=== PATIENT | female | born 1970 | race Caucasian/White ===

== ENCOUNTER 2021-02-07 08:18 | Outpatient (REF) | payer MEDICARE, SELFPAY ==
[2021-02-07 11:23] LABS: MANUAL DIFF FLAG NO
[2021-02-07 11:41] LABS: Basophils Absolute Auto 0.1 X10*3/uL (0.0-0.2); Basophils Percent Auto 0.8 % (0-2); Eosinophils Absolute Auto 0.1 X10*3/uL (0.0-0.4); Eosinophils Percent Auto 1.1 % (0-4); Hematocrit 45.1 % (37-47); Hemoglobin 14.6 g/dl (12.0-16.0); Imm Gran Abs Auto 0.01 X10*3/uL (0.00-0.03); Imm Gran Pct Auto 0.2 % (0.0-0.4); Lymphocytes Absolute Auto 1.2 X10*3/uL (1.2-4.9); Lymphocytes Percent Auto 19.9 % (20-40); Mean Corpuscular HGB Conc 32.4 g/dl (31.0-35.0); Mean Corpuscular Hemoglobin 28.8 pg (27.0-33.0); Mean Platelet Volume 11.6 fL (9.4-12.3); Monocytes Absolute Auto 0.6 X10*3/uL (0.1-1.2); Neutrophils Absolute Auto 4.3 X10*3/uL (2.0-8.3); Platelet Count 310 X10*3/uL (160-400); Red Blood Count 5.07 X10*6/uL (4.20-5.50); Red Cell Distribution Width 12.9 % (11.0-16.0); White Blood Count 6.2 X10*3/uL (4.8-10.8)
[2021-02-07 11:59] LABS: Alanine Aminotransferase 7 U/L (0-31); Albumin Level 4.4 g/dL (3.5-5.0); Alkaline Phosphatase 67 U/L (39-117); Anion Gap 13 (12-20); Aspartate Amino Transferase 15 U/L (5-31); Bilirubin Total 0.5 mg/dL (0.0-1.0); Blood Urea Nitrogen 15 mg/dL (9-16); Calcium 9.9 mg/dL (8.4-10.2); Carbon Dioxide 29 mmol/L (22-29); Chloride 105 mmol/L (96-108); Estimated Glomerular Filt Rate > 60; Glucose Random 94 mg/dL (60-115); Potassium 4.5 mmol/L (3.3-5.1); Sodium 142 mmol/L (135-145); Total Protein 6.6 g/dL (6.5-8.0)
[2021-02-09 09:46] LABS: LDL Cholesterol Direct 130 mg/dL (<100)
== END 2021-02-07 08:19 | disposition home or self-care (01) ==
LOC: HO.HMGCLDS 08:18
PROVIDERS: PCP Internal Medicine; Visit Provider Internal Medicine
DX: F41.1 Generalized anxiety disorder (principal); I10 Essential (primary) hypertension; N32.9 Bladder disorder, unspecified
CPT/HCPCS: 36415; 80053; 83721; 85025

== ENCOUNTER 2022-05-08 11:52 | Outpatient (REF) | payer OTHER, SELFPAY ==
--- NOTE | ~2022-05-08 | XR_ITS ---
EXAMINATION: XR hip LT min 2V, XR hip RT min 2V CLINICAL INFORMATION: Reason for Exam M25.551 - Pain in left hip COMPARISON: None. TECHNIQUE: Two views of the bilateral hips. FINDINGS: No acute fracture or dislocation. Mild degenerative changes of the bilateral hips with a left os acetabuli. Calcified phleboliths in the pelvis. XR/XR hip LT min 2V IMPRESSION: Mild degenerative changes of the bilateral hips.
--- NOTE | ~2022-05-08 | XR_ITS ---
EXAMINATION: XR hip LT min 2V, XR hip RT min 2V CLINICAL INFORMATION: Reason for Exam M25.551 - Pain in left hip COMPARISON: None. TECHNIQUE: Two views of the bilateral hips. FINDINGS: No acute fracture or dislocation. Mild degenerative changes of the bilateral hips with a left os acetabuli. Calcified phleboliths in the pelvis. XR/XR hip RT min 2V IMPRESSION: Mild degenerative changes of the bilateral hips.
[2022-05-08 13:57] LABS: MANUAL DIFF FLAG NO
[2022-05-08 14:08] LABS: Basophils Absolute Auto 0.1 X10*3/uL (0.0-0.2); Eosinophils Percent Auto 0.5 % (0-4); Hemoglobin 14.6 g/dl (12.0-16.0); Imm Gran Abs Auto 0.01 X10*3/uL (0.00-0.03); Imm Gran Pct Auto 0.2 % (0.0-0.4); Lymphocytes Absolute Auto 1.4 X10*3/uL (1.2-4.9); Lymphocytes Percent Auto 23.8 % (20-40); Mean Corpuscular HGB Conc 32.4 g/dl (31.0-35.0); Mean Corpuscular Volume 89.5 fL (80.0-98.0); Monocytes Absolute Auto 0.7 X10*3/uL (0.1-1.2); Monocytes Percent Auto 12.6 % (2-11); Neutrophils Absolute Auto 3.6 x10*3/uL (2.0-8.3); Neutrophils Percent Auto 61.9 % (45-73); Platelet Count 370 X10*3/uL (160-400); Red Blood Count 5.03 X10*6/uL (4.20-5.50); Red Cell Distribution Width 13.3 % (11.0-16.0); White Blood Count 5.8 X10*3/uL (4.8-10.8)
[2022-05-08 14:23] LABS: Alanine Aminotransferase 9 U/L (0-31); Albumin Level 4.6 g/dL (3.5-5.0); Alkaline Phosphatase 68 U/L (39-117); Anion Gap 15 (12-20); Aspartate Amino Transferase 16 U/L (5-31); Bilirubin Total 0.6 mg/dL (0.0-1.0); Blood Urea Nitrogen 18 mg/dL (9-16); Calcium 9.6 mg/dL (8.4-10.2); Carbon Dioxide 28 mmol/L (22-29); Chloride 105 mmol/L (96-108); Estimated Glomerular Filt Rate > 60; Glucose Random 87 mg/dL (60-115); Potassium 4.7 mmol/L (3.3-5.1); Sodium 143 mmol/L (135-145); Total Protein 6.9 g/dL (6.5-8.0)
[2022-05-08 14:45] LABS: TSH reflex Free T4 0.31 uIU/mL (0.32-4.0)
[2022-05-08 15:18] LABS: Free T4 (Free Thyroxine) 1.04 ng/dL (0.71-1.85)
[2022-05-10 16:16] LABS: LDL Cholesterol Direct 118 mg/dL (<100)
== END 2022-05-08 11:53 | disposition home or self-care (01) ==
LOC: HO.HMGCX 11:52
PROVIDERS: PCP Internal Medicine; Visit Provider Internal Medicine
DX: Z00.01 Encounter for general adult medical examination with abnormal findings (principal); M25.552 Pain in left hip; M25.551 Pain in right hip; F33.9 Major depressive disorder, recurrent, unspecified; F41.1 Generalized anxiety disorder; G35 Multiple sclerosis; I10 Essential (primary) hypertension; N32.9 Bladder disorder, unspecified
CPT/HCPCS: 36415; 73502; 80053; 83721; 84439; 84443; 85025

== ENCOUNTER 2022-06-30 18:40 | Inpatient (IN) | payer MEDICARE, MEDICAID, SELFPAY ==
--- NOTE | ~2022-06-30 | XR_ITS ---
EXAMINATION: XR CHEST CLINICAL INFORMATION: Generalized COMPARISON: 02/04/2019 TECHNIQUE: Frontal view of the chest was obtained. FINDINGS: Heart size normal. No evidence of CHF. Again noted is ectasia of the ascending aorta unchanged from 2019. Bilateral nipple shadows are present. No infiltrates, effusions or suspicious lung masses are seen XR/XR chest 1V IMPRESSION: No acute intrathoracic disease.
[2022-06-30 19:22] VITALS: BP 150/96; BP 152/90; PULSE 103; PULSE 123; RESP 23; TEMP 37.5; O2SAT 94; O2SAT 96; BMI 16.1
[2022-06-30 19:29] VITALS: BP 150/96; PULSE 128; RESP 23; TEMP 37.5; O2SAT 95
[2022-06-30 20:13] LABS: MANUAL DIFF FLAG NO
[2022-06-30 20:23] LABS: Basophils Absolute Auto 0.1 X10*3/uL (0.0-0.2); Basophils Percent Auto 0.6 % (0-2); Eosinophils Absolute Auto 0.1 X10*3/uL (0.0-0.4); Eosinophils Percent Auto 0.7 % (0-4); Hematocrit 41.7 % (37.0-47.0); Hemoglobin 13.6 g/dl (12.0-16.0); Imm Gran Abs Auto 0.02 X10*3/uL (0.00-0.03); Imm Gran Pct Auto 0.2 % (0.0-0.4); Lymphocytes Absolute Auto 0.3 X10*3/uL (1.2-4.9); Lymphocytes Percent Auto 3.6 % (20-40); Mean Corpuscular HGB Conc 32.6 g/dl (31.0-35.0); Mean Corpuscular Hemoglobin 28.9 pg (27.0-33.0); Mean Corpuscular Volume 88.5 fL (80.0-98.0); Mean Platelet Volume 10.8 fL (9.4-12.3); Monocytes Absolute Auto 0.7 X10*3/uL (0.1-1.2); Monocytes Percent Auto 7.6 % (2-11); Neutrophils Absolute Auto 7.6 x10*3/uL (2.0-8.3); Neutrophils Percent Auto 87.3 % (45-73); Platelet Count 316 X10*3/uL (160-400); Red Blood Count 4.71 X10*6/uL (4.20-5.50); Red Cell Distribution Width 12.9 % (11.0-16.0); White Blood Count 8.7 X10*3/uL (4.8-10.8)
[2022-06-30 20:32] LABS: Anion Gap 13 (12-20); Blood Urea Nitrogen 18 mg/dL (9-16); Calcium 9.5 mg/dL (8.4-10.2); Carbon Dioxide 27 mmol/L (22-29); Chloride 106 mmol/L (96-108); Estimated Glomerular Filt Rate > 60; Glucose Random 98 mg/dL (60-115); Potassium 4.7 mmol/L (3.3-5.1); Sodium 141 mmol/L (135-145)
--- NOTE | 2022-06-30 20:43 | ED_ITS ---
HPI - General Adult General Chief complaint: General Medical Stated complaint: GENERAL BODY PAIN Time Seen by Provider: 06/30/22 19:41 Source: patient and old records reviewed History of Present Illness HPI narrative: Patient complains of severe all over body pain but mostly in her neck and shoulders. No to recent traumas or precipitating factors of which she is aware. She has a history of chronic MS for which she has been followed by Neurology but her neurologist recently retired. She is in the process of obtaining a new one. She states over the past 1-2 days she has been having the above-mentioned increased pain. She does not know of any precipitating factors. There have been no recent stressors or illnesses. She denies fevers and chills although her temperature is 99.5 degrees here. She has chronic urinary incontinence but no new symptoms. No recent cough or URI symptoms. She lives at home with her son. Related Data Home Medications Medication Instructions Recorded Confirmed cholecalciferol (vitamin D3) 50 50 mcg PO DAILY 05/14/20 05/08/22 mcg (2,000 unit) capsule Previous Rx's Medication Instructions Recorded atenolol 25 mg tablet 25 mg PO DAILY 90 days #90 tabs 05/08/22 meclizine 25 mg tablet 25 mg PO ONCE 90 days #90 tabs 05/08/22 oxybutynin chloride 15 mg 15 mg PO DAILY 90 days #90 tabs 05/08/22 tablet,extended release 24 hr Allergies Allergy/AdvReac Type Severity Reaction Status Date / Time No Known Allergies Allergy Verified 05/20/22 14:18 [No Known Allergies*] Review of Systems Constitutional: Comments: Denies fevers and chills Cardiovascular: Comments: No chest pain or palpitation Respiratory: Comments: No cough or dyspnea Gastrointestinal: Comments: No nausea vomiting or abdominal pain Genitourinary: Comments: Chronic urinary incontinence without recent change Musculoskeletal: Comments: Severe all over body pain, greatest in neck and shoulders Integumentary/Breasts: Comments: No recent new rash Neurologic: Comments: No new focal weaknesses although she states she feels a little less coordinated than normal. She is on long-term immuno modulation therapy for her MS. Her next dose is due soon. Her last dose was 6 months ago. No recent medication changes Psychiatric: Comments: Anxiety PMFSH Past Medical History Medical History Anxiety, generalized Bladder disorder Hypertension, essential Multiple sclerosis Surgical History History of tubal ligation Family History Family History Father Diabetes mellitus Mother No problems noted. Brother Alcoholic Sister No problems noted. Social History Social History Housing: House Patient Tobacco Use Status: Current everyday Tobacco user Tobacco use type: Cigarette Cigarette Packs Per Day: 0 Cigarettes Per Day: 5 Smoked in Last 30 Days: Yes e-Cigarette/Vaping Use: Never Used Use of substances other than those prescribed or required for medical reasons: No Advance Directives: No Advance Directives Information Provided: No service: No Current occupational status: disabled Cognitive needs: No Hearing needs: No Vision needs: Yes Physical Exam ED Vital Signs: Vital Signs - 24 hr 06/30/22 19:22 06/30/22 19:29 06/30/22 21:26 Temperature 99.5 F 99.5 F 100.8 F H Pulse Rate 123 H 128 H 113 H Respiratory Rate 23 H 23 H 16 Blood Pressure 150/96 H 150/96 H 143/79 H Pulse Oximetry 94 95 95 Oxygen Delivery Method Room Air Room Air Room Air 06/30/22 22:15 06/30/22 22:47 06/30/22 23:53 Temperature 98.8 F 100.5 F H 100.0 F Pulse Rate 116 H 122 H 117 H Respiratory Rate 22 H 18 16 Blood Pressure 149/85 H 138/95 H 133/77 Pulse Oximetry 97 96 Oxygen Delivery Method Room Air Room Air 07/01/22 00:14 Temperature 99.4 F Pulse Rate 127 H Respiratory Rate 26 H Blood Pressure 133/85 Pulse Oximetry 96 Oxygen Delivery Method Room Air BMI result Body Mass Index 16.1 Const Other: Awake and appears very uncomfortable and restless. Oriented x3 Neck Other: Tender paraspinous muscles. No meningismus however. Resp Other: Clear and equal bilaterally with good air entry. No wheezes rales or rhonchi Cardio Other: Regular rhythm but tachycardic. No murmurs rubs or gallops GI Other: Soft nontender nondistended Skin Other: Bilateral feet with changes consistent with venous stasis. No acute cellulitic findings however Neuro Other: No obvious focal neurologic deficit. Extrem Other: No trauma. No calf tenderness. No significant pedal edema Course Course Course Narrative: Patient with increased pain in the setting of chronic multiple sclerosis. Patient states this does not feel like prior MS flares. Rule out precipitating causes such as infection or electrolyte imbalance. Likely musculoskeletal in nature however. Will treat with IV fluids, IV Ativan, IV Toradol. She is tachycardic which could be secondary to pain or dehydration or illness. Await full workup including urinalysis. 00:33. Patient started to run a temperature of a 100.5 degrees. Tylenol given. Sepsis workup continued. Patient still remains tachycardic. Will continue with IV fluids. Urinalysis shows probable urinary tract infection. Awaiting micro. Will order ceftriaxone for broad-spectrum antibiotic. 01:23. Patient now with temperature of a 102.1 degrees. I read discussed with patient that her neck pain is indeed acute on chronic. Pain is also into her shoulders. She can flex at the neck. I do not think this is meningitis. Especially given urinary tract infection. Will continue with current therapy Medications Administered Discontinued Medications Generic Name Dose Route Start Last Admin Trade Name Freq PRN Reason Stop Dose Admin Sodium Chloride 1,000 mls @ 999 mls/hr 06/30/22 20:45 06/30/22 21:58 Ns IV 06/30/22 21:45 Infused .Q1H1M MIHAELA Infusion Sodium Chloride 1,360.77 mls @ 1,360.77 mls/hr 06/30/22 21:54 06/30/22 22:07 Ns 30 ml/kg infuse over 1 hr (1360.77 ml) 06/30/22 22:53 1,360.77 mls/hr IV Administration .Q1H STA Ceftriaxone Sodium 1 gm/ 50 mls @ 100 mls/hr 07/01/22 00:27 07/01/22 00:38 Sodium Chloride IV 07/01/22 00:56 100 mls/hr ONCE ONE Administration Ketorolac Tromethamine 15 mg 06/30/22 20:42 06/30/22 20:53 Ketorolac Tromethamine 15 Mg/Ml Vial IVPUSH 06/30/22 20:43 15 mg ONCE ONE Administration Lorazepam 1 mg 06/30/22 20:42 06/30/22 20:53 Lorazepam 2 Mg/Ml Vial IVPUSH 06/30/22 20:43 1 mg ONCE ONE Administration Medical Decision Making Lab Data Result Diagrams: 06/30/22 20:03 06/30/22 20:03 Labs: Lab Results 06/30/22 06/30/22 06/30/22 Range/Units 20:03 20:03 23:08 WBC 8.7 (4.8-10.8) X10*3/uL RBC 4.71 (4.20-5.50) X10*6/uL Hgb 13.6 (12.0-16.0) g/dl Hct 41.7 (37.0-47.0) % MCV 88.5 (80.0-98.0) fL MCH 28.9 (27.0-33.0) pg MCHC 32.6 (31.0-35.0) g/dl RDW 12.9 (11.0-16.0) % Plt Count 316 (160-400) X10*3/uL MPV 10.8 (9.4-12.3) fL Immature Gran % (Auto) 0.2 (0.0-0.4) % Neut % (Auto) 87.3 H (45-73) % Lymph % (Auto) 3.6 L (20-40) % [place] % (Auto) 7.6 (2-11) % Eos % (Auto) 0.7 (0-4) % Baso % (Auto) 0.6 (0-2) % Lymph # (Auto) 0.3 L (1.2-4.9) X10*3/uL [place] # (Auto) 0.7 (0.1-1.2) X10*3/uL Eos # (Auto) 0.1 (0.0-0.4) X10*3/uL Baso # (Auto) 0.1 (0.0-0.2) X10*3/uL Abs Immat Gran (auto) 0.02 (0.00-0.03) X10*3/uL Absolute Neuts (auto) 7.6 (2.0-8.3) x10*3/uL Absolute Nucleated RBC 0.000 (0.0-0.012) X10*3/uL Nucleated RBC % (auto) 0.0 (0.0-0.2) /100WBC Sodium 141 (135-145) mmol/L Potassium 4.7 (3.3-5.1) mmol/L Chloride 106 (96-108) mmol/L Carbon Dioxide 27 (22-29) mmol/L Anion Gap 13 (12-20) BUN 18 H (9-16) mg/dL Creatinine 0.62 (0.5-1.4) mg/dL Estim Creat Clear Calc 76.0 Estimated GFR > 60 Random Glucose 98 (60-115) mg/dL Lactic Acid 1.0 (0.5-2.0) mmol/L Calcium 9.5 (8.4-10.2) mg/dL Urine Color Urine Appearance Urine pH (5.0-9.0) Ur Specific [place] (1.005-1.025) Urine Protein (Neg-Trace) mg/dL Urine Glucose (UA) (Negative) mg/dL Urine Ketones (Negative) mg/dL Urine Blood (Negative) Urine Nitrite (Negative) Ur Leukocyte Esterase (Negative) Urine RBC (0-2) /HPF Urine WBC (0-5) /HPF Ur Squamous Epith Cells (0-2) /HPF Calcium Oxalate Crystal Urine Bacteria (None Seen) Hyaline Casts (0-2) /LPF 06/30/22 Range/Units 23:56 WBC (4.8-10.8) X10*3/uL RBC (4.20-5.50) X10*6/uL Hgb (12.0-16.0) g/dl Hct (37.0-47.0) % MCV (80.0-98.0) fL MCH (27.0-33.0) pg MCHC (31.0-35.0) g/dl RDW (11.0-16.0) % Plt Count (160-400) X10*3/uL MPV (9.4-12.3) fL Immature Gran % (Auto) (0.0-0.4) % Neut % (Auto) (45-73) % Lymph % (Auto) (20-40) % [place] % (Auto) (2-11) % Eos % (Auto) (0-4) % Baso % (Auto) (0-2) % Lymph # (Auto) (1.2-4.9) X10*3/uL [place] # (Auto) (0.1-1.2) X10*3/uL Eos # (Auto) (0.0-0.4) X10*3/uL Baso # (Auto) (0.0-0.2) X10*3/uL Abs Immat Gran (auto) (0.00-0.03) X10*3/uL Absolute Neuts (auto) (2.0-8.3) x10*3/uL Absolute Nucleated RBC (0.0-0.012) X10*3/uL Nucleated RBC % (auto) (0.0-0.2) /100WBC Sodium (135-145) mmol/L Potassium (3.3-5.1) mmol/L Chloride (96-108) mmol/L Carbon Dioxide (22-29) mmol/L Anion Gap (12-20) BUN (9-16) mg/dL Creatinine (0.5-1.4) mg/dL Estim Creat Clear Calc Estimated GFR Random Glucose (60-115) mg/dL Lactic Acid (0.5-2.0) mmol/L Calcium (8.4-10.2) mg/dL Urine Color Yellow Urine Appearance Turbid Urine pH 7.0 (5.0-9.0) Ur Specific [place] 1.015 (1.005-1.025) Urine Protein 100 (2+) H (Neg-Trace) mg/dL Urine Glucose (UA) Negative (Negative) mg/dL Urine Ketones Trace (Negative) mg/dL Urine Blood Large (3+) H (Negative) Urine Nitrite Negative (Negative) Ur Leukocyte Esterase Large (3+) H (Negative) Urine RBC 6-10 H (0-2) /HPF Urine WBC >50 (0-5) /HPF Ur Squamous Epith Cells 6-10 (0-2) /HPF Calcium Oxalate Crystal Present Urine Bacteria 4+ (None Seen) Hyaline Casts 0-2 (0-2) /LPF Discharge Plan Discharge Clinical Impression: Urinary tract infection, Sepsis Patient Disposition: Admitted As Inpatient
[2022-06-30] MEDS: LORazepam 2 MG/ML VIAL 1 MG IVPUSH (20:53)
[2022-06-30] MEDS: Ketorolac Tromethamine 15 MG/ML VIAL IVPUSH (20:53)
[2022-06-30] MEDS: 0.9 % Sodium Chloride 1,000 ML 999 ML IV (20:53)
--- NOTE | 2022-06-30 20:54 | PC.NURSE ---
pt medicated for 10/10 generalized pain, ivf hung per order, given ativan per order float nurse
[2022-06-30 21:26] VITALS: BP 143/79; PULSE 113; RESP 16; TEMP 38.2; O2SAT 95
--- NOTE | 2022-06-30 21:31 | PC.NURSE ---
Patient's temp has gone up from 99.5 to 100.8. Provider notified.
[2022-06-30] MEDS: 0.9 % Sodium Chloride 1,360.77 ML 1360.77 ML IV (22:07)
[2022-06-30 22:15] VITALS: BP 149/85; PULSE 116; RESP 22; TEMP 37.1
[2022-06-30 22:47] VITALS: BP 138/95; PULSE 122; RESP 18; TEMP 38.1; O2SAT 97
--- NOTE | 2022-06-30 23:35 | PC.NURSE ---
16F urinary catheter inserted. 350cc of white/pale yellow cloudy urine into collection bag. Pt tolerated well.
[2022-06-30 23:53] VITALS: BP 133/77; PULSE 117; RESP 16; TEMP 37.8; O2SAT 96
[2022-07-01] VITALS (7 sets, daily range): BP systolic 107–151; BP diastolic 67–86; PULSE 95–127; RESP 14–26; TEMP 36.9–39.2; O2SAT 93–96
[2022-07-01 00:19] LABS: Appearance Urine Turbid; Color Urine Yellow; Glucose Urine UA Negative (Negative); Leukocyte Esterase Urine Large (3+) (Negative); Nitrite Urine Negative (Negative); Specific Gravity - Urine 1.015 (1.005-1.025); UMIC TRIGGER UACC YES; Urine Blood Large (3+) (Negative); Urine Ketones Trace mg/dL (Negative); Urine Protein 100 (2+) mg/dL (Neg-Trace)
[2022-07-01 00:36] LABS: Bacteria Urine 4+ (None Seen); Calcium Oxalate Crystals Urine Present; Hyaline Casts Urine 0-2 /LPF (0-2); UACC Culture Trigger YES; WBC Urine >50 /HPF (0-5)
[2022-07-01] MEDS: cefTRIAXone sodium 1 GM in 0.9 % Sodium Chloride 50 ML IV ×2 (00:38→21:37)
--- NOTE | 2022-07-01 00:55 | ECG_ITS ---
Test Reason : TACHYCARDIA Blood Pressure : / mmHG Vent. Rate : 123 BPM Atrial Rate : 123 BPM P-R Int : 140 ms QRS Dur : 054 ms QT Int : 326 ms P-R-T Axes : 031 005 -03 degrees QTc Int : 466 ms Artifact in tracing Sinus tachycardia with Premature supraventricular complexes Low voltage QRS Septal infarct , age undetermined Abnormal ECG When compared with ECG of 13-JAN-2019 14:13, Premature supraventricular complexes are now Present Vent. rate has increased BY 55 BPM Referred By: Dejon Becerra Electronically Signed By:TONG NIELSEN
[2022-07-01] MEDS: 0.9 % Sodium Chloride 1,000 ML 999 ML IV (01:21)
[2022-07-01] MEDS: Acetaminophen 325 MG TABLET 975 MG PO (01:22)
[2022-07-01] MEDS: HYDROmorphone HCl 0.5 MG/0.5 ML SYRINGE IVPUSH (01:22)
[2022-07-01 01:36] LABS: OBS Int Ctl Valid YES; OBS1 NEGATIVE (NEGATIVE)
[2022-07-01 01:53] LABS: COVID-19 Test Negative (Negative)
--- NOTE | 2022-07-01 02:37 | PC.NURSE ---
[place] text sent to Dr. Cordoba regarding pts rectal temp of 102.5F
[2022-07-01] MEDS: Lactated Ringers 1,000 ML 100 ML IVCONT ×3 (02:56→20:16)
[2022-07-01] MEDS: Ibuprofen 600 MG TABLET PO (04:29)
--- NOTE | 2022-07-01 04:35 | PC.NURSE ---
Pts sister, Tiki Adams, called for an update.
--- NOTE | 2022-07-01 06:24 | PC.NURSE ---
med req completed
[2022-07-01 06:47] LABS: MANUAL DIFF FLAG NO
[2022-07-01 06:55] LABS: Basophils Percent Auto 0.6 % (0-2); Eosinophils Percent Auto 0.2 % (0-4); Hematocrit 35.4 % (37.0-47.0); Hemoglobin 11.4 g/dl (12.0-16.0); Imm Gran Abs Auto 0.01 X10*3/uL (0.00-0.03); Imm Gran Pct Auto 0.2 % (0.0-0.4); Lymphocytes Absolute Auto 0.4 X10*3/uL (1.2-4.9); Lymphocytes Percent Auto 7.4 % (20-40); Mean Corpuscular HGB Conc 32.2 g/dl (31.0-35.0); Mean Corpuscular Hemoglobin 28.9 pg (27.0-33.0); Mean Corpuscular Volume 89.8 fL (80.0-98.0); Mean Platelet Volume 10.9 fL (9.4-12.3); Monocytes Absolute Auto 0.5 X10*3/uL (0.1-1.2); Monocytes Percent Auto 9.1 % (2-11); Neutrophils Absolute Auto 4.3 x10*3/uL (2.0-8.3); Neutrophils Percent Auto 82.5 % (45-73); Platelet Count 238 X10*3/uL (160-400); Red Blood Count 3.94 X10*6/uL (4.20-5.50); Red Cell Distribution Width 12.9 % (11.0-16.0); White Blood Count 5.2 X10*3/uL (4.8-10.8)
--- NOTE | 2022-07-01 07:02 | PHA.MEDREC ---
Pharmacy Consult ? Medication Reconciliation Pharmacy has completed the medication reconciliation.
--- NOTE | 2022-07-01 07:34 | P.HPHOSP_ITS ---
History of Present Illness Date of Service: 07/01/22 Chief Complaint: generalized body pain, difficulty ambulating 51-year-old female with past medical history of MS, muscle wasting, major depression disorder, anxiety, hypertension, presents to the hospital from home with complaints of generalized body pain as well as difficulty ambulating. Patient is somnolent but arousable, received pain medication therefore very lethargic. Unable to get much history otherwise. Patient comes from home according to the ED physician. On arrival to the ED patient found to have a temperature of a 100.8 degrees, heart rate in the 110s to 120s, respiratory rate of 23, blood pressure stable Labs are significant for WBC count of 5.2, labs are significant for urine positive for leukocyte Estrace and WBC otherwise unremarkable chest x-ray negative. Review of Systems Review of Systems: Yes Unobtainable due to mental status PMFSH Medical History Anxiety, generalized Bladder disorder Hypertension, essential Multiple sclerosis Family History Father Diabetes mellitus Mother No problems noted. Brother Alcoholic Sister No problems noted. Surgical History History of tubal ligation Social History Housing: House Patient Tobacco Use Status: Current everyday Tobacco user Tobacco use type: Cigarette Cigarette Packs Per Day: 0 Cigarettes Per Day: 5 Smoked in Last 30 Days: Yes e-Cigarette/Vaping Use: Never Used Use of substances other than those prescribed or required for medical reasons: No Advance Directives: No Advance Directives Information Provided: No service: No Current occupational status: disabled Cognitive needs: No Hearing needs: No Vision needs: Yes Meds Allergies Allergy/AdvReac Type Severity Reaction Status Date / Time No Known Allergies Allergy Verified 05/20/22 14:18 [No Known Allergies*] Active Medications: Current Medications Acetaminophen (Acetaminophen 325 Mg Tablet) 650 mg PO Q6H PRN PRN Reason: Pain, Mild (Pain Scale 1-3) Docusate Sodium (Docusate Sodium 100 Mg Capsule) 100 mg PO DAILY PRN PRN Reason: Constipation Enoxaparin Sodium (Enoxaparin Sodium 40 Mg/0.4 Ml Syringe) 40 mg SUBCUT Q24H [facility] Ceftriaxone Sodium 1 gm/ (Sodium Chloride) 50 mls @ 100 mls/hr IV Q24H [facility] Lactated Ringer's (Lr) 1,000 mls @ 100 mls/hr IVCONT .Q10H [facility] Last Admin: 07/01/22 02:56 Dose: 100 mls/hr Ondansetron HCl (Ondansetron Hcl 4 Mg/2 Ml Vial) 4 mg IVPUSH Q8H PRN PRN Reason: Nausea and Vomiting Sodium Chloride (0.9 % Sodium Chloride Flush 3 Ml Syringe) 3 ml IVFLUSH QSHIFT [facility] Last Admin: 07/01/22 07:09 Dose: Not Given Home Medications Medication Instructions Recorded Confirmed Last Taken Type cholecalciferol (vitamin D3) 50 50 mcg PO DAILY 05/14/20 07/01/22 Unknown History mcg (2,000 unit) capsule meclizine 25 mg tablet 25 mg PO DAILY PRN Dizziness 07/01/22 07/01/22 Unknown History Physical Exam Vital Signs and Narrative: Vital Signs: Last Vital Signs Temp 98.4 F 07/01/22 07:07 Pulse 95 07/01/22 07:07 Resp 18 07/01/22 07:07 BP 107/67 07/01/22 07:07 Pulse Ox 94 07/01/22 07:07 O2 Del Method 07/01/22 07:07 BMI result Body Mass Index 16.1 Const: Other: somnolent, arousable to verbal command General: no acute distress Eyes: General: appearance normal, both eyes and all related structures Resp: Effort & Inspection: normal respiratory effort Auscultation: clear to auscultation bilaterally Cardio: Rate: regular rate Rhythm: regular rhythm GI: Palpation (GI): Soft to palpation Auscultation: normal bowel sounds Skin: General skin exam: no rashes or lesions noted Neuro: Other: Unable to assess neurological exam as patient somnolent and not following Extrem: General: Yes normal to inspection and Yes no pedal edema Results Labs CBC and Chem 7: 07/01/22 06:10 06/30/22 20:03 Labs: Laboratory Results - last 24 hr 06/30/22 06/30/22 06/30/22 20:03 20:03 23:08 MCV 88.5 MCH 28.9 MCHC 32.6 RDW 12.9 Plt Count 316 MPV 10.8 Immature Gran % (Auto) 0.2 Neut % (Auto) 87.3 H Lymph % (Auto) 3.6 L [place] % (Auto) 7.6 Eos % (Auto) 0.7 Baso % (Auto) 0.6 Lymph # (Auto) 0.3 L [place] # (Auto) 0.7 Eos # (Auto) 0.1 Baso # (Auto) 0.1 Abs Immat Gran (auto) 0.02 Absolute Neuts (auto) 7.6 Absolute Nucleated RBC 0.000 Nucleated RBC % (auto) 0.0 Anion Gap 13 Estim Creat Clear Calc 76.0 Estimated GFR > 60 Random Glucose 98 Lactic Acid 1.0 Calcium 9.5 Urine Color Urine Appearance Urine pH Ur Specific [place] Urine Protein Urine Glucose (UA) Urine Ketones Urine Blood Urine Nitrite Ur Leukocyte Esterase Urine RBC Urine WBC Ur Squamous Epith Cells Calcium Oxalate Crystal Urine Bacteria Hyaline Casts Stool Occult Blood COVID-19 (JA) COVID-19 Clin Com 06/30/22 07/01/22 07/01/22 23:56 01:17 01:34 MCV MCH MCHC RDW Plt Count MPV Immature Gran % (Auto) Neut % (Auto) Lymph % (Auto) [place] % (Auto) Eos % (Auto) Baso % (Auto) Lymph # (Auto) [place] # (Auto) Eos # (Auto) Baso # (Auto) Abs Immat Gran (auto) Absolute Neuts (auto) Absolute Nucleated RBC Nucleated RBC % (auto) Anion Gap Estim Creat Clear Calc Estimated GFR Random Glucose Lactic Acid Calcium Urine Color Yellow Urine Appearance Turbid Urine pH 7.0 Ur Specific [place] 1.015 Urine Protein 100 (2+) H Urine Glucose (UA) Negative Urine Ketones Trace Urine Blood Large (3+) H Urine Nitrite Negative Ur Leukocyte Esterase Large (3+) H Urine RBC 6-10 H Urine WBC >50 Ur Squamous Epith Cells 6-10 Calcium Oxalate Crystal Present Urine Bacteria 4+ Hyaline Casts 0-2 Stool Occult Blood NEGATIVE COVID-19 (JA) Negative COVID-19 Clin Com See Note 07/01/22 06:10 MCV 89.8 MCH 28.9 MCHC 32.2 RDW 12.9 Plt Count 238 MPV 10.9 Immature Gran % (Auto) 0.2 Neut % (Auto) 82.5 H Lymph % (Auto) 7.4 L [place] % (Auto) 9.1 Eos % (Auto) 0.2 Baso % (Auto) 0.6 Lymph # (Auto) 0.4 L [place] # (Auto) 0.5 Eos # (Auto) 0.0 Baso # (Auto) 0.0 Abs Immat Gran (auto) 0.01 Absolute Neuts (auto) 4.3 Absolute Nucleated RBC 0.000 Nucleated RBC % (auto) 0.0 Anion Gap Estim Creat Clear Calc Estimated GFR Random Glucose Lactic Acid Calcium Urine Color Urine Appearance Urine pH Ur Specific [place] Urine Protein Urine Glucose (UA) Urine Ketones Urine Blood Urine Nitrite Ur Leukocyte Esterase Urine RBC Urine WBC Ur Squamous Epith Cells Calcium Oxalate Crystal Urine Bacteria Hyaline Casts Stool Occult Blood COVID-19 (JA) COVID-19 Clin Com Imaging Radiologist's Impressions: Impressions Chest X-Ray 06/30/22 22:25 IMPRESSION: No acute intrathoracic disease. Assessment and Plan (1) Sepsis: Status: Acute (2) Urinary tract infection: Status: Acute (3) Multiple sclerosis: Status: Acute Plan 51-year-old female with past medical history of MS presents to the hospital with complaints of generalized body aches found to have UTI and acute sepsis # sepsis - likely secondary to UTI - febrile, tachycardic, tachypneic, has no leukocytosis, lactic acid normal - will treat with IV antibiotics - follow cultures # UTI - positive UA - septic - follow cultures # MS - possibly in flare patient reports pain all over her body as well as di fficulty ambulating - will obtain MRI - neurology consulted # hypertension - stable - hold atenolol DVT prophylaxis: Lovenox given patient's acute sepsis requiring IV antibiotics patient require minimum [facility] ([facility]3]ight inpatient hospital stay for further management Time Spent With Patient Time: Total time managing care of this patient today ____ minutes. Quality Stroke Does the patient have a stroke diagnosis?: No VTE Prior VTE?: No VTE Risk Level:: Medical - moderate - high VTE Device Contraindication: Treatment Not Indicated VTE Drug Contraindication: N/A - Med Ordered
[2022-07-01 07:47] LABS: Blood Urea Nitrogen 11 mg/dL (9-16); Creatinine Clr Calc Pharmacy 84.1; Estimated Glomerular Filt Rate > 60; Glucose Random 90 mg/dL (60-115)
[2022-07-01 08:03] LABS: Anion Gap 11 (12-20); Calcium 8.1 mg/dL (8.4-10.2); Carbon Dioxide 22 mmol/L (22-29); Chloride 110 mmol/L (96-108); Potassium 3.6 mmol/L (3.3-5.1); Sodium 139 mmol/L (135-145)
[2022-07-01] MEDS: Enoxaparin Sodium 40 MG/0.4 ML SYRINGE SUBCUT (08:03)
[2022-07-01 08:29] LABS: Lactic Acid 0.9 mmol/L (0.5-2.0)
--- NOTE | 2022-07-01 10:56 | MHC.CM.PN ---
Attempted to meet with patient in regards to discharge planning. Provider currently with patient. Will attempt to meet again. Continue to monitor for d/c needs.
--- NOTE | 2022-07-01 12:08 | PM.EVENT ---
Event Note Date of Service: 07/01/22 Event Note: Chief Complaint: generalized body pain, difficulty ambulating ?51-year-old female with past medical history of MS, muscle wasting, major depression disorder, anxiety, hypertension, presents to the hospital from home with complaints of generalized body pain as well as difficulty ambulating, On arrival to the ED patient found to have a temperature of a 100.8 degrees, heart rate in the 110s to 120s, respiratory rate of 23, blood pressure stable Labs are significant for? WBC count of 5.2, labs are significant for urine positive for leukocyte Estrace 4+ bacteria and WBC otherwise unremarkable chest x-ray negative. At present patient complaining of generalized pain mostly in her hips, lower extremities requesting for pain medication according to her her primary care physician is not giving her pain meds and has been recommending to take marijuana she has not seen a neurologist in last several months since her primary neurologist left the area she has not received treatment for MS in > last 6 months 51-year-old female with past medical history of MS presents to the hospital with complaints of generalized body aches? found to have UTI and acute sepsis #? sepsis likely secondary to UTI -? febrile, tachycardic, tachypneic, has no leukocytosis, lactic acid normal Continue IV ceftriaxone follow urine and blood cultures History of chronic urinary frequency continue oxybutynin #? MS history of relapsing remitting multiple sclerosis has been treated with Ocrevus in the past, patient currently not under care of Neurology since her neurologist left the area -? possibly in flare patient reports pain all over her body as well as difficulty ambulating Check MRI brain with and without contrast Await Neurology input and further testing Will obtain PT eval after Neuro input #? hypertension -? stable, resume atenolol it 25 mg daily Time Spent With Patient Time: Total time managing care of this patient today ____ minutes.
[2022-07-01] MEDS: Ketorolac Tromethamine 15 MG/ML VIAL IVPUSH ×2 (12:32→20:15)
--- NOTE | 2022-07-01 12:43 | PM.NEUROCN ---
History of Present Illness Data of Consult Service Date: 07/01/22 Primary Care Provider: Unknown Physician HPI Reason for consult: Multiple sclerosis 51 years old woman with chronic multiple sclerosis at this time following [facility] Neurology and was treated with Ocruves. She came to hospital with severe back pain. Pain was all over the back and lower back. She was found to be febrile and had signs of UTI. Review of Systems Review of Systems: Mostly back pain. [facility] Past Medical History Medical History Anxiety, generalized Bladder disorder Hypertension, essential Multiple sclerosis Family History Family History Father Diabetes mellitus Mother No problems noted. Brother Alcoholic Sister No problems noted. Surgical History Surgical History History of tubal ligation Social History Social History Housing: House Patient Tobacco Use Status: Current everyday Tobacco user Tobacco use type: Cigarette Cigarette Packs Per Day: 0 Cigarettes Per Day: 5 Smoked in Last 30 Days: Yes e-Cigarette/Vaping Use: Never Used Use of substances other than those prescribed or required for medical reasons: No Advance Directives: No Advance Directives Information Provided: No service: No Current occupational status: disabled Cognitive needs: No Hearing needs: No Vision needs: Yes Meds Allergies Allergy/AdvReac Type Severity Reaction Status Date / Time No Known Allergies Allergy Verified 05/20/22 14:18 [No Known Allergies*] Active Medications: Current Medications Acetaminophen (Acetaminophen 325 Mg Tablet) 650 mg PO Q6H PRN PRN Reason: Pain, Mild (Pain Scale 1-3) Atenolol (Atenolol 25 Mg Tablet) 25 mg PO DAILY MIHAELA; Protocol Docusate Sodium (Docusate Sodium 100 Mg Capsule) 100 mg PO DAILY PRN PRN Reason: Constipation Enoxaparin Sodium (Enoxaparin Sodium 40 Mg/0.4 Ml Syringe) 40 mg SUBCUT Q24H MIHAELA Last Admin: 07/01/22 08:03 Dose: 40 mg Ceftriaxone Sodium 1 gm/ (Sodium Chloride) 50 mls @ 100 mls/hr IV Q24H MIHAELA Lactated Ringer's (Lr) 1,000 mls @ 100 mls/hr IVCONT .Q10H MIHAELA Last Admin: 07/01/22 12:32 Dose: 100 mls/hr Ketorolac Tromethamine (Ketorolac Tromethamine 15 Mg/Ml Vial) 15 mg IVPUSH Q6H PRN PRN Reason: Pain, Moderate (Pain Scale 4-6 Last Admin: 07/01/22 12:32 Dose: 15 mg Ondansetron HCl (Ondansetron Hcl 4 Mg/2 Ml Vial) 4 mg IVPUSH Q8H PRN PRN Reason: Nausea and Vomiting Oxybutynin Chloride (Oxybutynin Chloride Er 5 Mg Tab.Er.24) 15 mg PO DAILY [facility] Sodium Chloride (0.9 % Sodium Chloride Flush 3 Ml Syringe) 3 ml IVFLUSH QSHIFT [facility] Last Admin: 07/01/22 07:09 Dose: Not Given Home Medications Medication Instructions Recorded Confirmed Last Taken Type cholecalciferol (vitamin D3) 50 50 mcg PO DAILY 05/14/20 07/01/22 Unknown History mcg (2,000 unit) capsule meclizine 25 mg tablet 25 mg PO DAILY PRN Dizziness 07/01/22 07/01/22 Unknown History Physical Exam Vital Signs: Vital Signs: Last Vital Signs Temp 98.4 F 07/01/22 07:07 Pulse 95 07/01/22 07:07 Resp 18 07/01/22 07:07 BP 107/67 07/01/22 07:07 Pulse Ox 94 07/01/22 07:07 O2 Del Method 07/01/22 07:07 BMI result Body Mass Index 16.1 Neuro: Other: Alert and awake with normal spontaneity of speech fluency comprehension and depressed affect. Face is symmetrical. Legs are semi flexed. Reflexes are brisk with bilateral extensor to equivocal plantars. Results Labs CBC & Chem 7: 07/01/22 06:10 07/01/22 06:10 Labs: Short CBC 06/30/22 07/01/22 Range/Units 20:03 06:10 WBC 8.7 5.2 (4.8-10.8) X10*3/uL Hgb 13.6 11.4 L (12.0-16.0) g/dl Hct 41.7 35.4 L (37.0-47.0) % Plt Count 316 238 (160-400) X10*3/uL BMP 06/30/22 07/01/22 20:03 06:10 Sodium 141 139 Potassium 4.7 3.6 D Chloride 106 110 H Carbon Dioxide 27 22 BUN 18 H 11 Creatinine 0.62 0.56 Calcium 9.5 8.1 L D Urine 06/30/22 Range/Units 23:56 Urine Color Yellow Urine Appearance Turbid Urine pH 7.0 (5.0-9.0) Ur Specific Mcpherson 1.015 (1.005-1.025) Urine Protein 100 (2+) H (Neg-Trace) mg/dL Urine Glucose (UA) Negative (Negative) mg/dL Assessment and Plan (1) Multiple sclerosis: Status: Acute 51 years old woman with multiple sclerosis treated with Ocuves was in emergency room with severe back pain. She also was febrile and had signs of UTI. I believe UTI was the likely cause of her acute problem at this time. I would recommend appropriate treatment and not Solu-Medrol. She would follow up with her neurologist in [facility] Time Spent With Patient Time: Total time managing care of this patient today ____ minutes. Procedures Date of Service Date of Service: 07/01/22
[2022-07-01 12:44] LABS: Adenovirus PCR Not Detected (Not Detect.); Bordetella parapertussis PCR Not Detected (Not Detect.); Bordetella pertussis PCR Not Detected (Not Detect.)
[2022-07-01 12:45] LABS: Chlamydia pneumoniae PCR Not Detected (Not Detect.); Coronavirus 229E PCR Not Detected (Not Detect.); Coronavirus HKU1 PCR Not Detected (Not Detect.); Coronavirus NL63 PCR Not Detected (Not Detect.); Coronavirus OC43 PCR Not Detected (Not Detect.); Human metapneumovirus PCR Not Detected (Not Detect.); Influenza A PCR Not Detected (Not Detect.); Influenza B PCR Not Detected (Not Detect.); Mycoplasma pneumoniae PCR Not Detected (Not Detect.); Parainfluenza 1 PCR Not Detected (Not Detect.); Parainfluenza 2 PCR Not Detected (Not Detect.); Parainfluenza 3 PCR Not Detected (Not Detect.); Parainfluenza 4 PCR Not Detected (Not Detect.); RSV PCR Not Detected (Not Detect.); Rhino/Enterovirus PCR Not Detected (Not Detect.); SARS-CoV-2 PCR Not Detected (Not Detect.)
--- NOTE | 2022-07-01 13:21 | MHC.CM.PN ---
This writer producer meet with patient for CM assessment. Pt Alert & oriented, in significant pain. From home lives with son, uses walker around the home. Has [facility] in the home prior to admission. [facility] SW helping patient with [employer] as her current insurance will be expiring at the end of the month. Completed HCP with patient. No Vax'd for covid. D/C plan- home w/ resumption of [facility]. Son to transport home @ d/c.
--- NOTE | 2022-07-01 18:44 | PC.NURSE ---
PT HAS BEEN REPOSITIONED SEVERAL TIMES, STATES SHE IS UNCOMFORTABLE, AND WANTS TO SIT UP AND NOT BE ON LEFT SIDE, SOON REPOSITIONED REPOSITIONS SELF TO LEFT SIDE, HAVE CONTACTED MD FOR SOME THING FOR ANXIETY PT IS TEARFUL, AND SLIGHTLY AGGITATED.
[2022-07-01] MEDS: Acetaminophen 325 MG TABLET 650 MG PO (20:15)
[2022-07-01] MEDS: LORazepam 0.5 MG TABLET PO (20:15)
--- NOTE | 2022-07-01 21:24 | PC.NURSE ---
Care of patient assumed in ED Overflow. Patient is alert, oriented x3, and reports body aches and anxiety. She is tearful several times and offered prn ativan for comfort. Hx- MS. She is assisted with repositioning several times for comfort and requires emotional support frequently and shouts out help me! crying despite having call bonilla nearby. Many moments of emotional support provided. Patient understands plan for admission for UTI/urosepsis and is agreeable. She is able to move all extremities in stretcher, but shouts out to be repositioned for comfort when needed several times. All prn medications reviewed with patient and will keep patient comfortable this evening.
[2022-07-01] MEDS: 0.9 % Sodium Chloride Flush 3 ML SYRINGE IVFLUSH (23:57)
[2022-07-02 05:18] VITALS: BP 133/77; PULSE 108; RESP 16; TEMP 37.2; O2SAT 95
[2022-07-02] MEDS: Ketorolac Tromethamine 15 MG/ML VIAL IVPUSH ×2 (08:24→20:02)
[2022-07-02] MEDS: atenoloL 25 MG TABLET PO (08:24)
[2022-07-02] MEDS: Enoxaparin Sodium 40 MG/0.4 ML SYRINGE SUBCUT (08:24)
[2022-07-02] MEDS: 0.9 % Sodium Chloride Flush 3 ML SYRINGE IVFLUSH ×2 (08:25→21:38)
[2022-07-02 08:28] VITALS: BP 143/75; PULSE 110; RESP 16; O2SAT 95
[2022-07-02 11:35] VITALS: BP 112/64; PULSE 75; RESP 16; O2SAT 95
--- NOTE | 2022-07-02 14:28 | HO.PM.IMPN ---
Subjective Subjective Date of Service: 07/02/22 Interval History: Feeling better this morning less generalized pain, no fevers no chills no other acute issues, tolerated diet no nausea, no vomiting, no abdominal pain, no headache, no dizziness, no events overnight. Review of Systems Review of Systems: Yes all other systems are reviewed and are negative Physical Exam Vital Signs: Vital Signs: Last Vital Signs Temp 99 F 07/02/22 05:18 Pulse 75 07/02/22 11:35 Resp 16 07/02/22 11:35 BP 112/64 07/02/22 11:35 Pulse Ox 95 07/02/22 11:35 O2 Del Method 07/02/22 11:35 BMI result Body Mass Index 16.1 Const: Other: General awake alert x3, in no acute distress. Neck supple no JVD. CVS regular rate rhythm, Respiratory lungs clear to auscultation, no respiratory distress, no wheeze, no rhonchi. Gastrointestinal abdomen soft, nontender, bowel sounds audible, no guarding , no rigidity. Extremities no edema. Neuro nonfocal Skin no rash Psych appropriate affect Objective Data Active Medications Acetaminophen (Acetaminophen 325 Mg Tablet) 650 mg PO Q6H PRN PRN Reason: Pain, Mild (Pain Scale 1-3) Last Admin: 07/01/22 20:15 Dose: 650 mg Documented By: MARGIE Atenolol (Atenolol 25 Mg Tablet) 25 mg PO DAILY [facility]; Protocol Last Admin: 07/02/22 08:24 Dose: 25 mg Documented By: CHENG Docusate Sodium (Docusate Sodium 100 Mg Capsule) 100 mg PO DAILY PRN PRN Reason: Constipation Enoxaparin Sodium (Enoxaparin Sodium 40 Mg/0.4 Ml Syringe) 40 mg SUBCUT Q24H [facility] Last Admin: 07/02/22 08:24 Dose: 40 mg Documented By: CHENG Ceftriaxone Sodium 1 gm/ (Sodium Chloride) 50 mls @ 100 mls/hr IV Q24H [facility] Last Infusion: 07/01/22 22:10 Dose: 0 mls/hr Documented By: JERSON Ketorolac Tromethamine (Ketorolac Tromethamine 15 Mg/Ml Vial) 15 mg IVPUSH Q6H PRN PRN Reason: Pain, Moderate (Pain Scale 4-6 Last Admin: 07/02/22 08:24 Dose: 15 mg Documented By: CHENG Lorazepam (Lorazepam 0.5 Mg Tablet) 0.5 mg PO DAILY PRN PRN Reason: Anxiety Ondansetron HCl (Ondansetron Hcl 4 Mg/2 Ml Vial) 4 mg IVPUSH Q8H PRN PRN Reason: Nausea and Vomiting Oxybutynin Chloride (Oxybutynin Chloride Er 5 Mg Tab.Er.24) 15 mg PO DAILY [facility] Last Admin: 07/02/22 08:24 Dose: 15 mg Documented By: CHENG Sodium Chloride (0.9 % Sodium Chloride Flush 3 Ml Syringe) 3 ml IVFLUSH QSHIFT [facility] Last Admin: 07/02/22 08:25 Dose: 3 ml Documented By: CHENG Labs CBC & Chem 7: 07/01/22 06:10 07/01/22 06:10 Microbiology Microbiology Results: Microbiology 07/01/22 Unknown Urine Culture - Final Urine Catheterized - Bird Catheter 06/30/22 23:08 Blood Culture - Preliminary Blood - Venous No growth after 24 hours. 06/30/22 23:03 Blood Culture - Preliminary Blood - Venous No growth after 24 hours. Assessment and Plan (1) Urinary tract infection: Status: Acute (2) Sepsis: Status: Acute Plan 51-year-old female with past medical history of MS presents to the hospital with complaints of generalized body aches? found to have UTI and acute sepsis #? sepsis likely secondary to UTI -? sepsis resolved, no leukocytosis, lactic acid normal, chest x-ray unremarkable Continue IV ceftriaxone follow urine and blood cultures Continue oxybutynin, encourage out of bed to chair and ambulation with walker #? MS -? seen by Neurology no acute flare noted, no further imaging studies ordered recommend outpatient follow-up with Neurology at [facility] #? hypertension -? stable, resume atenolol ?DVT prophylaxis:? Lovenox ?Patient requires continued inpatient hospitalization for IV antibiotics for sepsis due to UTI. Time Spent With Patient Time: Total time managing care of this patient today ____ minutes. Quality Stroke Does the patient have a stroke diagnosis?: No VTE Prior VTE?: No VTE Risk Level:: Medical - moderate - high VTE Device Contraindication: Treatment Not Indicated VTE Drug Contraindication: N/A - Med Ordered
--- NOTE | 2022-07-02 15:51 | PC.NURSE ---
pt reports feeling dizzy - tiger connect sent to MD Fisher as pt has meclizine in med rec - plan to order.
[2022-07-02 16:33] VITALS: BP 113/64; PULSE 86; RESP 18; TEMP 36.8; O2SAT 96
[2022-07-02 19:40] VITALS: BP 129/77; PULSE 106; RESP 19; TEMP 37.4; O2SAT 98
[2022-07-02] MEDS: cefTRIAXone sodium 1 GM in 0.9 % Sodium Chloride 50 ML IV (21:38)
[2022-07-03] MEDS: Ketorolac Tromethamine 15 MG/ML VIAL IVPUSH (03:16)
[2022-07-03] MEDS: LORazepam 0.5 MG TABLET PO (03:19)
[2022-07-03 03:31] VITALS: BP 129/71; PULSE 99; RESP 18; TEMP 39.6; O2SAT 95
[2022-07-03 03:35] VITALS: TEMP 37.3
[2022-07-03 08:00] VITALS: BP 120/68; PULSE 100; RESP 18; TEMP 37.4; O2SAT 94
--- NOTE | 2022-07-03 10:04 | PM.DS ---
DS: Providers Provider Date of Service: 07/03/22 Date of admission: 07/01/22 01:31 Primary care physician: Unknown Physician Consults: 07/01/22 07:38 Consult to Neurology Routine Consulting Provider: [facility] Reason for consultation: MS, states increased pain and 'body not working DS: Diagnosis Discharge Diagnosis (1) Urinary tract infection: Status: Acute (2) Sepsis: Status: Acute DS: Summary Hospital Course Hospital Course: history of presenting illness Date of Service: 07/01/22 Chief Complaint: generalized body pain, difficulty ambulating ?51-year-old female with past medical history of MS, muscle wasting, major depression disorder, anxiety, hypertension, presents to the hospital from home with complaints of generalized body pain as well as difficulty ambulating.? Patient is somnolent but arousable, received pain medication therefore very lethargic.? Unable to get much history otherwise.? Patient comes from home according to the ED physician.? On arrival to the ED patient found to have a temperature of a 100.8 degrees, heart rate in the 110s to 120s, respiratory rate of 23, blood pressure stable Labs are significant for? WBC count of 5.2, labs are significant for urine positive for leukocyte Estrace and WBC otherwise unremarkable chest x-ray negative. hospital course 51-year-old female with past medical history of MS presents to the hospital with complaints of generalized body aches? noted to have positive UA therefore admitted with UTI and acute sepsis #? generalized weakness, noted to have SIRS with tachycardia tachypnea and fever thought to have UTI patient treated with IV antibiotic however urine culture grew mixed organisms therefore IV antibiotic discontinued, viral panel negative, chest x-ray no infiltrate, therefore antibiotic discontinued patient feeling significantly better blood cultures negative after she is discharged home with a recommendation to rest take plenty of fluids and good nutrition #? MS-? seen by Neurology no acute flare noted, no further imaging studies ordered recommend outpatient follow-up with Neurology at [facility]. #? hypertension? stable, on atenolol # bilateral feet eczema recommend steroid cream twice daily for 2 weeks Time Spent with Patient Time attestation: Total time managing care of this patient today ____ minutes. Discharge coordination time: Greater than 30 minutes Quality: Safe Use of Opioids Does Pt have an Active Cancer Diagnosis on the Problem List?: No Quality: Stroke Does the patient have a stroke diagnosis?: No Physical Exam Vital Signs: Vital Signs: Last Vital Signs Temp 99.3 F 07/03/22 08:00 Pulse 100 07/03/22 08:00 Resp 18 07/03/22 08:00 BP 120/68 07/03/22 08:00 Pulse Ox 94 07/03/22 08:00 O2 Del Method 07/03/22 08:00 BMI result Body Mass Index 16.1 Const: Other: General awake alert x3, in no acute distress.? Neck? supple no JVD. CVS? regular rate rhythm, Respiratory lungs clear to auscultation, no respiratory distress, no wheeze, no rhonchi. Gastrointestinal abdomen soft, nontender, bowel sounds audible, no guarding , no rigidity. Extremities no edema. Neuro nonfocal Skin dry scaly skin dorsum of both feet with scaliness dryness Psych appropriate affect DS: Data Data Completed and Pending Labs on day of discharge: Preliminary micro results at discharge 06/30/22 23:08 Blood Culture - Preliminary Blood - Venous No growth after 48 hours. 06/30/22 23:03 Blood Culture - Preliminary Blood - Venous No growth after 48 hours. Discharge Plan Discharge Anticipated Discharge Date/Time: 07/03/22 09:58 Patient Disposition: Home, Self-Care Discharge Diagnosis: generalized weakness SIRS Referrals: Physician,Unknown J [Primary Care Provider] - 1 Week Discharge Medications: New triamcinolone acetonide 0.1 % Cream 1 appl topical BID Qty: 80 0RF Protocol: Apply to: Apply to: both feet Continued meclizine 25 mg tablet 25 mg PO DAILY PRN (Reason: Dizziness) cholecalciferol (vitamin D3) 50 mcg (2,000 unit) capsule 50 mcg PO DAILY oxybutynin chloride 15 mg tablet extended release 24hr 15 mg PO DAILY 90 Days Qty: 90 1RF atenolol 25 mg tablet 25 mg PO DAILY 90 Days Qty: 90 1RF Discharge Orders: Discharge Order (Routine); Ordered 07/03/22 Ordered By: Oswaldo Fisher Diet: Advance to usual diet Activity on Discharge: As tolerated Stand Alone Forms: Patient Portal Discharge page Care Plan Goals: generalized weakness, sirs no a source of infection found viral panel negative recommend rest plenty of fluids and good nutrition bilateral foot eczema use Kenalog cream twice daily in regard to MS call [facility] Neurology for follow-up Health Concerns: continue all home medication Plan of Treatment: follow-up with primary care physician and Neurology Assessment: as above
--- NOTE | 2022-07-03 10:06 | MHC.CM.PN ---
Addendum entered by Savita Becerra RN 07/03/22 10:10: CORRECTION: PATIENT IS DC HOME TODAY WITH RESUMPTION OF HER [facility] SERVICES Original Note: PATIENT IS DC HOME - SELF CARE RN AWARE
[2022-07-03] MEDS: Enoxaparin Sodium 40 MG/0.4 ML SYRINGE SUBCUT (10:17)
[2022-07-03] MEDS: 0.9 % Sodium Chloride Flush 3 ML SYRINGE IVFLUSH (10:18)
[2022-07-03] MEDS: atenoloL 25 MG TABLET PO (10:18)
== END 2022-07-03 12:00 | disposition home health service (06) | DRG 872 ==
LOC: HO.ED 07-01 00:36 → HO.EDOVER 07-01 01:45 → HO.S3 07-02 13:46
PROVIDERS: Admitting Provider Internal Medicine; Emergency Provider Emergency Medicine; PCP Internal Medicine; Visit Provider Hospitalist
DX: A41.9 Sepsis, unspecified organism (principal); N39.0 Urinary tract infection, site not specified; G35 Multiple sclerosis; F41.1 Generalized anxiety disorder; I10 Essential (primary) hypertension; Z20.822 Contact with and (suspected) exposure to COVID-19; F17.210 Nicotine dependence, cigarettes, uncomplicated; Z71.6 Tobacco abuse counseling; Z79.899 Other long term (current) drug therapy
CPT/HCPCS: 36415; 71045; 80048; 81001; 82272; 83605; 85025; 87040; 87086; 87633; 87635; 93005; 96361; 96365; 96366; 96372; 96375; 96376; 99285; C1758; J0696; J1170; J1650; J1885; J2060

== ENCOUNTER 2023-04-29 08:32 | Outpatient (AMB) | payer OTHER, SELFPAY ==
--- NOTE | 2023-04-29 09:58 | A.OFFPC_ITS ---
Intake Visit Reasons: Fill Out Forms ~ Allergies No Known Allergies [No Known Allergies*] Allergy (Verified 04/29/23 10:11) Medication List - Last Reconciled 04/29/23 by Armen Pedersen MD atenolol 25 mg PO DAILY 90 days cholecalciferol (vitamin D3) 50 mcg PO DAILY hospital bed As directed meclizine 25 mg PO DAILY PRN oxybutynin chloride ER 15 mg PO DAILY 90 days triamcinolone acetonide 0.1% 1 appl See Protocol topical BID Tobacco use date assessed: 04/29/23 Dental Screening Dental Screen Date: 04/29/23 Did you have a dental visit in the last 12 months?: Yes Did you have a dental problem in the last 6 months where you did not have access to dental care?: No Was dental information given to patient?: Patient has dentist HPI Fill Out Forms ~ HPI Details Patient is a 52-year-old female with a history of MS, currently getting infusions through [facility] twice a year Patient have a personal support worker who is coming in every day for 5-1/2 hours to cyst with cooking cleaning and personal hygiene. She continued to have incontinence of urine and is wearing 2 diapers it night and 2 in the morning and then again in the afternoon She is in need of 6 diapers daily that will be 180 diverse every month. Patient needed paperwork filled for that which I have for. She is taking atenolol 25 mg for hypertension patient says that her blood pressure is running fine However when she have infusions then it is slightly elevated and then goes down after. Patient is also on oxybutynin which helps somewhat with the bladder control. She is to continue vitamin-D supplement and she also take meclizine for chronic dizziness. I have ordered labs with the patient her DENTAL ASSOCIATE will assist in bringing patient to the lab. Patient is aware that at least once a year we need to do the labs. [facility] Medical History (Updated 04/29/23 @ 10:06 by Armen Pedersen MD) Multiple sclerosis Bladder disorder Anxiety, generalized Hypertension, essential Surgical History History of tubal ligation Family History Father Diabetes mellitus Mother No problems noted. Brother Alcoholic Sister No problems noted. Social History Household Members: Children Housing: House Do you presently have visiting nurse or other home services: Yes (PT/OT) Patient Tobacco Use Status: Current everyday Tobacco user Tobacco use type: Cigarette Cigarette Packs Per Day: 0 Cigarettes Per Day: 5 e-Cigarette/Vaping Use: Never Used Substance Use Type: Marijuana service: No Current occupational status: disabled Cognitive needs: No Hearing needs: No Vision needs: Yes Questionnaire Thrive Questionnaire Date Thrive assessed: 05/08/22 AUDIT C Alcohol Use Questionnaire (AUDIT-C) 1. How often do you have a drink containing alcohol?: Never 3. How often do you have six or more drinks on one occasion?: Never Total Score: 0 Score Reviewed/Action Taken: No JESUS-7 AMB Questionnaire JESUS-7 Date JESUS - 7 assessed: 05/08/22 Source: Developed by Drs. Mychal Israel, Latanya Mayberry, Jose Rothman and colleagues, with an educational ani from [employer]. Review of Systems Const Denies chills and Denies fever(s) ENT Denies epistaxis and Denies nasal discharge Card Denies chest pain Resp Denies chest congestion, Denies cough and Denies hemoptysis GI Denies diarrhea and Denies nausea Skin/Breast Denies rash Neuro Reports no additional complaints Psych Reports no additional complaints Endo Reports no additional complaints Physical exam (Primary Care) Tobacco/Smoking Status: Tobacco use Status Tobacco use date assessed 04/29/23 04/29/23 10:11 Patient Tobacco Use Status Current everyday Tobacco 04/29/23 10:04 Tobacco use type Cigarette 04/29/23 10:04 e-Cigarette/Vaping Use Never Used 04/29/23 10:04 Thrive Assessment: Date of Thrive Assessment Date Thrive assessed 05/08/22 04/29/23 10:04 Telehealth Telehealth Location of provider rendering services: practice address Location of patient: address on file Patient Identification confirmed using: Name, : Yes Telehealth method: video (was attempted) Patient verbally consented to treatment: Yes Patient verbally consented to billing insurance company: Yes Patient informed of any privacy concerns related to visit: Yes Assessment and Plan Assessment & Plan (1) Multiple sclerosis: Code(s): G35 - Multiple sclerosis (2) Hypertension, essential: Code(s): I10 - Essential (primary) hypertension (3) Muscle wasting: Code(s): M62.50 - Muscle wasting and atrophy, not elsewhere classified, unspecified site Qualifiers: Muscle atrophy area: multiple sites Qualified Code(s): M62.59 - Muscle wasting and atrophy, not elsewhere classified, multiple sites (4) Risk for falls: Code(s): Z91.81 - History of falling (5) Urine incontinence: Code(s): R32 - Unspecified urinary incontinence Qualifiers: Urinary Incontinence type: functional incontinence Qualified Code(s): R39.81 - Functional urinary incontinence (6) Vertigo: Code(s): R42 - Dizziness and giddiness Plan Patient is a 52-year-old female with a history of MS, currently getting infusions through [facility] twice a year Patient have a personal support worker who is coming in every day for 5-1/2 hours to cyst with cooking cleaning and personal hygiene. She continued to have incontinence of urine and is wearing 2 diapers it night and 2 in the morning and then again in the afternoon She is in need of 6 diapers daily that will be 180 diverse every month. Patient needed paperwork filled for that which I have for. She is taking atenolol 25 mg for hypertension patient says that her blood pressure is running fine However when she have infusions then it is slightly elevated and then goes down after. Patient is also on oxybutynin which helps somewhat with the bladder control. She is to continue vitamin-D supplement and she also take meclizine for chronic dizziness. I have ordered labs with the patient her DENTAL ASSOCIATE will assist in bringing patient to the lab. Patient is aware that at least once a year we need to do the labs. Orders: Orders Comprehensive Met. Panel Today G35 - Multiple sclerosis, I10 - Essential (primary) hypertension, M62.50 - Muscle wasting and atrophy, not elsewhere classified, unspecified site, R32 - Unspecified urinary incontinence, R42 - Dizziness and giddiness Complete Blood Count Auto Diff Today G35 - Multiple sclerosis, I10 - Essential (primary) hypertension, M62.50 - Muscle wasting and atrophy, not elsewhere classified, unspecified site, R32 - Unspecified urinary incontinence, R42 - Dizziness and giddiness Medications: New meclizine 25 mg PO DAILY PRN 90 tabs 1RF Dizziness cholecalciferol (vitamin D3) 50 mcg PO DAILY 90 caps 1RF Refilled oxybutynin chloride ER 15 mg PO DAILY 90 tabs 1RF 90 days atenolol 25 mg PO DAILY 90 tabs 1RF 90 days I10 - Essential (primary) hypertension Coding Level of Care Code Tele Est Pt Level 4 (55398) Diagnoses Multiple sclerosis G35 Hypertension, essential I10 Atrophy of muscle of multiple sites M62.59 Muscle atrophy area: multiple sites Risk for falls Z91.81 Functional urinary incontinence R39.81 Urinary Incontinence type: functional incontinence Vertigo R42 Time Spent (min) 35 Comment 5 prep, 20 with patient, 10 charting/forms/labs/meds
== END 2023-04-29 12:47 | disposition home or self-care (01) ==
LOC: HO.HMGC 08:32
PROVIDERS: PCP Internal Medicine; Visit Provider Internal Medicine
DX: G35 Multiple sclerosis (principal); I10 Essential (primary) hypertension; M62.59 Muscle wasting and atrophy, not elsewhere classified, multiple sites; Z91.81 History of falling; R39.81 Functional urinary incontinence; R42 Dizziness and giddiness
CPT/HCPCS: 99214

== ENCOUNTER 2023-08-26 08:34 | Outpatient (AMB) | payer OTHER, SELFPAY ==
--- NOTE | 2023-08-26 09:05 | MHC.PC.OV ---
Intake Visit Reasons: 4 month f/u~[phone] Allergies No Known Allergies [No Known Allergies*] Allergy (Verified 08/26/23 09:06) Medication List - Last Reconciled 08/26/23 by Armen Pedersen MD atenolol 25 mg PO DAILY 90 days cholecalciferol (vitamin D3) 50 mcg PO DAILY hospital bed As directed meclizine 25 mg PO DAILY PRN oxybutynin chloride ER 15 mg PO DAILY 90 days triamcinolone acetonide 0.1% 1 appl See Protocol topical BID Tobacco use date assessed: 08/26/23 Dental Screening Dental Screen Date: 08/26/23 Did you have a dental visit in the last 12 months?: No Did you have a dental problem in the last 6 months where you did not have access to dental care?: No Was dental information given to patient?: No HPI 4 month f/u~[phone] HPI Details Patient is a 53-year-old female with a history of MS, currently getting infusions through [facility] twice a year Patient has not had labs done since June of 2022, last time we had a visit I requested labs from her she has not been able to come to lab. Patient says that her personal injury specialist is going part-time and there is no [facility] to bring her over However she is going to request her over the weekend if he can bring her over. She continued to have incontinence of urine and is wearing 2 diapers it night and 2 in the morning and then again in the afternoon She is in need of 6 diapers daily that will be 180 diverse every month. Patient needed paperwork filled for that which I have for. She is taking atenolol 25 mg for hypertension patient says that her blood pressure is running fine Patient is also on oxybutynin which helps somewhat with the bladder control. She is to continue vitamin-D supplement and she also take meclizine for chronic dizziness. [facility] Medical History Multiple sclerosis Bladder disorder Anxiety, generalized Hypertension, essential Surgical History History of tubal ligation Family History Father Diabetes mellitus Mother No problems noted. Brother Alcoholic Sister No problems noted. Social History Household Members: Children Housing: House Do you presently have visiting nurse or other home services: Yes (PT/OT) Patient Tobacco Use Status: Current everyday Tobacco user Tobacco use type: Cigarette Cigarette Packs Per Day: 0 Cigarettes Per Day: 5 e-Cigarette/Vaping Use: Never Used Substance Use Type: Marijuana service: No Current occupational status: disabled Cognitive needs: No Hearing needs: No Vision needs: Yes Questionnaire Thrive Questionnaire Date Thrive assessed: 05/08/22 AUDIT C Alcohol Use Questionnaire (AUDIT-C) 1. How often do you have a drink containing alcohol?: Never 3. How often do you have six or more drinks on one occasion?: Never Total Score: 0 Score Reviewed/Action Taken: Yes JESUS-7 AMB Questionnaire JESUS-7 Date JESUS - 7 assessed: 05/08/22 Source: Developed by Drs. Mychal Israel, Latanya Mayberry, Jose Rothman and colleagues, with an educational ani from [employer]. Review of Systems Const Denies chills and Denies fever(s) ENT Denies epistaxis and Denies nasal discharge Card Denies chest pain Resp Denies chest congestion, Denies cough and Denies hemoptysis GI Denies diarrhea and Denies nausea Skin/Breast Denies rash Neuro Reports no additional complaints Psych Reports no additional complaints Endo Reports no additional complaints Physical exam (Primary Care) Tobacco/Smoking Status: Tobacco use Status Tobacco use date assessed 08/26/23 08/26/23 09:07 Patient Tobacco Use Status Current everyday Tobacco 08/26/23 09:07 Tobacco use type Cigarette 08/26/23 09:07 e-Cigarette/Vaping Use Never Used 08/26/23 09:07 Thrive Assessment: Date of Thrive Assessment Date Thrive assessed 05/08/22 08/26/23 09:07 Telehealth Telehealth Location of provider rendering services: practice address Location of patient: address on file Patient Identification confirmed using: Name, : Yes Telehealth method: video (was attempted) Patient verbally consented to treatment: Yes Patient verbally consented to billing insurance company: Yes Patient informed of any privacy concerns related to visit: Yes Assessment and Plan Assessment & Plan (1) Multiple sclerosis: Code(s): G35 - Multiple sclerosis (2) Hypertension, essential: Code(s): I10 - Essential (primary) hypertension (3) Muscle wasting: Code(s): M62.50 - Muscle wasting and atrophy, not elsewhere classified, unspecified site Qualifiers: Muscle atrophy area: multiple sites Qualified Code(s): M62.59 - Muscle wasting and atrophy, not elsewhere classified, multiple sites (4) Risk for falls: Code(s): Z91.81 - History of falling (5) Urine incontinence: Code(s): R32 - Unspecified urinary incontinence Qualifiers: Urinary Incontinence type: functional incontinence Qualified Code(s): R39.81 - Functional urinary incontinence (6) Vertigo: Code(s): R42 - Dizziness and giddiness Plan Patient is a 53-year-old female with a history of MS, currently getting infusions through [facility] twice a year Patient has not had labs done since June of 2022, last time we had a visit I requested labs from her she has not been able to come to lab. Patient says that her personal injury specialist is going part-time and there is no [facility] to bring her over However she is going to request her over the weekend if he can bring her over. She continued to have incontinence of urine and is wearing 2 diapers it night and 2 in the morning and then again in the afternoon She is in need of 6 diapers daily that will be 180 diverse every month. Patient needed paperwork filled for that which I have for. She is taking atenolol 25 mg for hypertension patient says that her blood pressure is running fine Patient is also on oxybutynin which helps somewhat with the bladder control. She is to continue vitamin-D supplement and she also take meclizine for chronic dizziness. Coding Level of Care Code Tele Est Pt Level 3 (08167) Diagnoses Multiple sclerosis G35 Hypertension, essential I10 Atrophy of muscle of multiple sites M62.59 Muscle atrophy area: multiple sites Risk for falls Z91.81 Functional urinary incontinence R39.81 Urinary Incontinence type: functional incontinence Vertigo R42
== END 2023-08-26 11:51 | disposition home or self-care (01) ==
LOC: HO.HMGC 08:34
PROVIDERS: PCP Internal Medicine; Visit Provider Internal Medicine
DX: I10 Essential (primary) hypertension (principal); G35 Multiple sclerosis; M62.59 Muscle wasting and atrophy, not elsewhere classified, multiple sites; Z91.81 History of falling; R39.81 Functional urinary incontinence; R42 Dizziness and giddiness
CPT/HCPCS: 99213

== ENCOUNTER 2024-01-17 17:27 | Emergency (ER) | payer OTHER, SELFPAY ==
--- NOTE | ~2024-01-17 | XR_ITS ---
EXAMINATION: XR SHOULDER, RIGHT CLINICAL INFORMATION: Right shoulder pain COMPARISON: None available. TECHNIQUE: AP external rotation, Grashey, scapular Y, and axillary views of the right shoulder. FINDINGS: The bones and soft tissues are normal. No fracture. Glenohumeral and acromioclavicular alignment is anatomic with normal joint space. No abnormal soft tissue calcifications. XR/XR shoulder RT min 2V IMPRESSION: Normal right shoulder.
--- NOTE | ~2024-01-17 | CT_ITS ---
EXAMINATION: CT ABDOMEN AND PELVIS WITH CONTRAST CLINICAL INFORMATION: Right lower quadrant discomfort COMPARISON: None available. TECHNIQUE: Multidetector volumetric images were obtained from the superior aspect of the liver through the pubic symphysis following administration 85 mL of Omnipaque 350 intravenous contrast. Sagittal and coronal reformatted images were obtained on the technologist's workstation. Oral contrast: No This CT examination was performed using dose optimization techniques as appropriate, variously including the following: *Automated exposure control *Adjustment of mA and/or kV according to patient size (this includes techniques or standardized protocols for targeted exams where dose is matched to indication/reason for exam; i.e. extremities or head) *Use of iterative reconstruction technique DLP: 299 mGy-cm FINDINGS: LUNG BASES: There are tree-in-bud opacities are seen in the right middle lobe along with right middle lobe atelectasis medially LIVER, GALLBLADDER, AND BILIARY TREE: The liver is normal enlarged measuring almost 20 cm in greatest length with decreased attenuation consistent with hepatic steatosis. Small subcentimeter hypodensities are seen consistent with benign cysts which need no follow-up. No worrisome solid focal hepatic lesion or biliary ductal dilatation is present. The gallbladder is unremarkable with no evidence of radiopaque gallstones, gallbladder wall thickening, or obvious pericholecystic inflammatory changes. PANCREAS: Unremarkable. There are pancreatic lobulations but no mass seen. SPLEEN: Unremarkable. ADRENAL GLANDS: Unremarkable. KIDNEYS AND URETERS: The kidneys are normal in size, shape, and attenuation. No hydronephrosis, hydroureter, or calculi seen. No perinephric stranding. BLADDER: There is marked asymmetric thickening of the bladder wall which measures 1.2 cm on the left. There is marked mucosal enhancement in this region. GASTROINTESTINAL TRACT: The small and large bowel are unremarkable. The appendix is unremarkable. ABDOMINAL WALL: No significant hernia is appreciated. LYMPH NODES: Normal. VASCULAR: Calcific atherosclerotic changes are present in the aorta and iliofemoral vessels. There is no evidence of an abdominal aortic aneurysm. There is reflux in the left ovarian vein which is small and there are small to moderate number of left-sided pelvic varices. PELVIC VISCERA: Retroverted uterus is present. An abnormal adnexal mass is not seen. OSSEOUS STRUCTURES: Marked scoliosis convex to the left is seen with degenerative changes throughout the spine. No bony destructive lesions CT/CT abdomen pelvis w IV con IMPRESSION: 1. A cause for the patient's right lower quadrant pain has not been found. The appendix is normal. 2. Incidental note made of an enlarged fatty liver, tree-in-bud opacities in the right middle lobe, marked asymmetric thickening of the bladder wall with mucosal enhancement, left ovarian vein reflux with pelvic varices and degenerative changes in the spine. Cystoscopy is recommended for further evaluation of the bladder. Fleischner guidelines were followed.
[2024-01-17 17:53] VITALS: BP 139/93; BP 151/105; PULSE 106; PULSE 94; RESP 16; TEMP 36.6; O2SAT 97; O2SAT 99; BMI 16.5
--- NOTE | 2024-01-17 18:15 | ED.GENADULT ---
HPI - General Adult General Chief complaint: Extremity Problem Stated complaint: R ARM PAIN, ABD PAIN X 1WEEK Time Seen by Provider: 01/17/24 18:12 Source: patient Mode of arrival: ambulatory Limitations: no limitations History of Present Illness HPI narrative: This is a 51-year-old woman with a past medical history of MS, muscle wasting, major depression disorder, anxiety, hypertension who presents via EMS for evaluation. Patient reports generally unwell for the last approximate 1 week. She states noting a sensation of fullness in her right lower quadrant of her abdomen. She states to me that she feels like she has a soft ball ? in there. She reports this sensation waxes and wanes. She reports sometimes it improves after eating. She states no associated abdominal pain. She states otherwise that she feels that she can not keep anything down and further elaborates stated that whenever she eats she has a bowel movement of undigested food. She reports an abdominal surgical history of getting her ?tubes tied?. She states she is passing flatus. She states no melena or hematochezia. She states no nausea or vomiting. She states no chest pain or dyspnea. She states no fevers or chills. She states that she has right arm pain as well. She states the pain is worse with movement of her right shoulder. She states that she has fallen onto her right shoulder a couple of weeks ago and states that she never had it evaluated. She states no head injury, neck pain paresthesias. She states no vision changes, speech changes or hearing changes. She states no extremity weakness. She states no dysuria or urinary frequency/urgency. Related Data Previous Rx's ?Medication ?Instructions ?Recorded triamcinolone acetonide 0.1 % 1 appl topical BID #80 grams 07/03/22 topical cream [facility] bed #1 ea 07/23/22 meclizine 25 mg tablet 25 mg PO DAILY PRN Dizziness #90 04/29/23 tabs oxybutynin chloride 15 mg 15 mg PO DAILY 90 days #90 tabs 04/29/23 tablet,extended release 24 hr atenolol 25 mg tablet 25 mg PO DAILY 90 days #90 tabs 11/01/23 cholecalciferol (vitamin D3) 50 50 mcg PO DAILY #90 caps 11/01/23 mcg (2,000 unit) capsule Allergies Allergy/AdvReac Type Severity Reaction Status Date / Time No Known Allergies Allergy Verified 01/17/24 18:20 [No Known Allergies*] Review of Systems Review of Systems: ROS as per [facility] Past Medical History Medical History Multiple sclerosis Bladder disorder Anxiety, generalized Hypertension, essential Surgical History History of tubal ligation Family History Family History Father Diabetes mellitus Mother No problems noted. Brother Alcoholic Sister No problems noted. Social History Social History Household Members: Children Housing: House Do you presently have visiting nurse or other home services: Yes (PT/OT) Patient Tobacco Use Status: Current everyday Tobacco user Tobacco use type: Cigarette Cigarette Packs Per Day: 0 Cigarettes Per Day: 5 e-Cigarette/Vaping Use: Never Used Substance Use Type: Marijuana Advance Directives: Yes Advance Directives on File: Yes Advance Directives Date on File: 07/02/22 service: No Current occupational status: disabled Cognitive needs: No Hearing needs: No Vision needs: Yes Physical Exam ED Vital Signs: Vital Signs - 24 hr 01/17/24 17:53 01/17/24 20:00 Temperature 97.9 F 98.2 F Pulse Rate 94 100 Respiratory Rate 16 12 Blood Pressure 151/105 H 141/84 H Pulse Oximetry 97 96 Oxygen Delivery Method Room Air Room Air BMI result Body Mass Index 16.5 Gen: NAD, AOx3 HEENT: NCAT, EOMI, normal conjunctiva CV: RRR, 2+ bilateral radial pulses Pulm: CTAB, no increased work of breathing GI: Soft, NTND, no rebound, guarding or rigidity MSK: Bilateral upper extremity compartments are soft with intact overlying skin and no overlying skin changes, full range of motion with right shoulder flexion/extension and abduction/adduction Neuro: Grossly non focal, sensation intact to light touch in bilateral upper extremity dermatomes C6-C8 Medications Administered Discontinued Medications Generic Name Dose Route Start Last Admin Trade Name Freq PRN Reason Stop Dose Admin Lactated Ringer's 1,000 mls @ 999 mls/hr 01/17/24 18:17 01/17/24 18:57 Lr IV 01/17/24 19:17 999 mls/hr .Q1H1M ONE Administration Iohexol 100 ml 01/17/24 19:45 01/17/24 19:45 Iohexol 350 Mg/Ml 100 Ml Infus..Btl IV 01/17/24 19:46 85 ml ONCE ONE Administration Medical Decision Making Medical Decision Making [facility] Narrative: Differential diagnosis includes, but is not limited to appendicitis, strain, sprain, acute coronary syndrome, acute kidney injury, electrolyte abnormality, dehydration, rhabdomyolysis. Patient is afebrile and hemodynamically stable on room air. Exam is benign and reassuring. I reviewed and interpreted labs, which are noncontributory. I reviewed and interpreted EKG, which is unremarkable for any acute findings. Diagnostic imaging studies are unremarkable for any acute findings. There are incidental findings on CT of enlarged fatty liver, tree-in-bud opacities in the right middle lobe and marked asymmetric thickening of the bladder wall with mucosal enhancement, left ovarian vein reflux with pelvic varices and degenerative changes in the spine. These findings are discussed with the patient. Patient is advised to follow up with a urologist for further evaluation of her bladder with cystoscopy. She is provided referral to establish care with a urologist. Patient is provided 1 L IV LR. On re-examination, patient is well-appearing and in no acute distress.?There is no indication for further emergent evaluation in this otherwise well-appearing patient as above. ?Patient is provided written and verbal instructions, educational materials, recommendations for outpatient follow-up, urology referral, strict return precautions and teach back is performed. ?Patient states understanding and agreement with plan of care. ?Patient is discharged home in stable and improved condition. Admission/Observation Consideration of admission/observation: Escalation of care including admission/observation considered Lab Data [facility] Lab Attestation statement: I reviewed the patient's lab results. 01/17/24 18:48 01/17/24 18:48 Labs: Lab Results 01/17/24 Range/Units 18:48 WBC 9.7 (4.8-10.8) X10*3/uL RBC 4.77 D (4.20-5.50) X10*6/uL Hgb 14.1 D (12.0-16.0) g/dl Hct 41.6 (37.0-47.0) % MCV 87.2 (80.0-98.0) fL MCH 29.6 (27.0-33.0) pg MCHC 33.9 (31.0-35.0) g/dl RDW 13.1 (11.0-16.0) % Plt Count 391 D (160-400) X10*3/uL MPV 10.4 (9.4-12.3) fL Immature Gran % (Auto) 0.2 (0.0-0.4) % Neut % (Auto) 71.2 (45-73) % Lymph % (Auto) 19.0 L (20-40) % [place] % (Auto) 8.4 (2-11) % Eos % (Auto) 0.6 (0-4) % Baso % (Auto) 0.6 (0-2) % Lymph # (Auto) 1.8 (1.2-4.9) X10*3/uL [place] # (Auto) 0.8 (0.1-1.2) X10*3/uL Eos # (Auto) 0.1 (0.0-0.4) X10*3/uL Baso # (Auto) 0.1 (0.0-0.2) X10*3/uL Abs Immat Gran (auto) 0.02 (0.00-0.03) X10*3/uL Absolute Neuts (auto) 6.9 (2.0-8.3) x10*3/uL Absolute Nucleated RBC 0.000 (0.0-0.012) X10*3/uL Nucleated RBC % (auto) 0.0 (0.0-0.2) /100WBC Sodium 142 (135-145) mmol/L Potassium 3.9 (3.3-5.1) mmol/L Chloride 103 (96-108) mmol/L Carbon Dioxide 29 (22-29) mmol/L Anion Gap 14 (12-20) BUN 10 (9-16) mg/dL Creatinine 0.66 (0.5-1.4) mg/dL Estim Creat Clear Calc 80.1 Estimated GFR > 60 Random Glucose 96 (60-115) mg/dL Calcium 9.9 D (8.4-10.2) mg/dL Total Creatine Kinase 42 (26-140) U/L Troponin I High Sens < 2.7 (<3.5-17.0) ng/L Independent Interpretation I performed an independent interpretation of an: EKG Interpretation: EKG demonstrates sinus rhythm at 82 beats per minute, TX 108, QRS 68, QTC 457, no STEMI (compared to previous EKG July 01, 2022 there are no diagnostic ischemic changes and heart rate is a decreased) Radiology Impression Discussion of test interpretation with radiology: I have reviewed the radiologist's reading. Radiologist Impression: CT/CT abdomen pelvis w IV con IMPRESSION: 1. A cause for the patient's right lower quadrant pain has not been found. The appendix is normal. 2. Incidental note made of an enlarged fatty liver, tree-in-bud opacities in the right middle lobe, marked asymmetric thickening of the bladder wall with mucosal enhancement, left ovarian vein reflux with pelvic varices and degenerative changes in the spine. Cystoscopy is recommended for further evaluation of the bladder. Fleischner guidelines were followed. Dictated By: Abhinav White MD Signed By: <Electronically signed by Abhinav White MD in OV> 01/17/242045 XR/XR shoulder RT min 2V IMPRESSION: Normal right shoulder. Dictated By: Félix Goff MD Signed By: <Electronically signed by Félix Goff MD in OV> 01/17/242043 Discharge Plan Discharge Clinical Impression: Abdominal pain, Arm pain, right Patient Disposition: Home, Self-Care Instructions: Abdominal Pain (ED), Arm Pain (ED) Additional Instructions: You were seen and evaluated in the emergency room. Your vital signs were normal and he did not have fever. ? Your blood work and EKG were normal. The CAT scan of your abdomen/pelvis did not identify any emergent abrnormality. We incidentally noted thickening of your bladder wall and you should follow up with a Urologist in the next 5-7 days for further evaluation. Please call the Urologist's office to schedule a follow up appointment. Please follow-up with your primary care doctor in the next 5-7 days. ? Please return to the emergency room if you develop any worsening symptoms including, but not limited to fever, chest pain, difficulty breathing, abdominal pain, nausea/vomiting or inability to eat/drink. Prescriptions: No Action (DME) hospital bed Kit See Rx Instructions .Route Qty: 1 0RF Rx Instructions: As directed atenolol 25 mg tablet 25 mg PO DAILY 90 Days Qty: 90 1RF cholecalciferol (vitamin D3) 50 mcg (2,000 unit) capsule 50 mcg PO DAILY Qty: 90 1RF triamcinolone acetonide 0.1 % Cream 1 appl topical BID Qty: 80 0RF Protocol: Apply to: Apply to: both feet meclizine 25 mg tablet 25 mg PO DAILY PRN (Reason: Dizziness) Qty: 90 1RF oxybutynin chloride 15 mg tablet extended release 24hr 15 mg PO DAILY 90 Days Qty: 90 1RF Referrals: Viral Denson MD [Physician] - Print Language: Tamazight
--- NOTE | 2024-01-17 18:17 | ECG_ITS ---
Test Reason : EXTREMITY PAIN Blood Pressure : / mmHG Vent. Rate : 082 BPM Atrial Rate : 082 BPM P-R Int : 108 ms QRS Dur : 068 ms QT Int : 392 ms P-R-T Axes : 011 004 002 degrees QTc Int : 457 ms Artifact in tracing Sinus rhythm with short NM T inversions anterior leads Abnormal ECG When compared with ECG of 01-JUL-2022 01:15, Vent. rate has decreased BY 41 BPM Referred By: Cameron Alcocer Electronically Signed By:TONG NIELSEN
[2024-01-17 18:51] LABS: MANUAL DIFF FLAG NO
[2024-01-17 18:53] LABS: Basophils Absolute Auto 0.1 X10*3/uL (0.0-0.2); Basophils Percent Auto 0.6 % (0-2); Eosinophils Absolute Auto 0.1 X10*3/uL (0.0-0.4); Eosinophils Percent Auto 0.6 % (0-4); Hematocrit 41.6 % (37.0-47.0); Hemoglobin 14.1 g/dl (12.0-16.0); Imm Gran Abs Auto 0.02 X10*3/uL (0.00-0.03); Imm Gran Pct Auto 0.2 % (0.0-0.4); Lymphocytes Absolute Auto 1.8 X10*3/uL (1.2-4.9); Mean Corpuscular HGB Conc 33.9 g/dl (31.0-35.0); Mean Corpuscular Hemoglobin 29.6 pg (27.0-33.0); Mean Corpuscular Volume 87.2 fL (80.0-98.0); Mean Platelet Volume 10.4 fL (9.4-12.3); Monocytes Absolute Auto 0.8 X10*3/uL (0.1-1.2); Monocytes Percent Auto 8.4 % (2-11); Neutrophils Absolute Auto 6.9 x10*3/uL (2.0-8.3); Neutrophils Percent Auto 71.2 % (45-73); Platelet Count 391 X10*3/uL (160-400); Red Blood Count 4.77 X10*6/uL (4.20-5.50); Red Cell Distribution Width 13.1 % (11.0-16.0); White Blood Count 9.7 X10*3/uL (4.8-10.8)
[2024-01-17] MEDS: Lactated Ringers 1,000 ML 999 ML IV (18:57)
[2024-01-17 19:08] LABS: Anion Gap 14 (12-20); Blood Urea Nitrogen 10 mg/dL (9-16); Calcium 9.9 mg/dL (8.4-10.2); Carbon Dioxide 29 mmol/L (22-29); Chloride 103 mmol/L (96-108); Creatinine Clr Calc Pharmacy 80.1; Estimated Glomerular Filt Rate > 60; Glucose Random 96 mg/dL (60-115); Potassium 3.9 mmol/L (3.3-5.1); Sodium 142 mmol/L (135-145)
[2024-01-17 19:16] LABS: Troponin-I High Sensitivity < 2.7 ng/L (<3.5-17.0)
[2024-01-17] MEDS: iohexoL 350 MG/ML 100 ML INFUS..BTL IV (19:45)
[2024-01-17 20:00] VITALS: BP 141/84; PULSE 100; RESP 12; TEMP 36.8; O2SAT 96
[2024-01-17 21:17] VITALS: BP 150/96; PULSE 87; RESP 18; TEMP 36.7; O2SAT 97
== END 2024-01-17 21:53 | disposition home or self-care (01) ==
PROVIDERS: Emergency Provider Emergency Medicine; PCP Internal Medicine
DX: R10.31 Right lower quadrant pain (principal); M79.601 Pain in right arm; R11.0 Nausea; R94.31 Abnormal electrocardiogram [ECG] [EKG]; M25.511 Pain in right shoulder; Z79.899 Other long term (current) drug therapy
CPT/HCPCS: 36415; 73030; 74177; 80048; 82550; 84484; 85025; 93005; 96360; 96361; 99284; J7120; Q9967

== ENCOUNTER → 2024-01-17 18:17 | Outpatient (BNV) | payer OTHER, SELFPAY | PROVIDERS: Emergency Provider Emergency Medicine; PCP Internal Medicine; Visit Provider Internal Medicine | DX: R94.31 Abnormal electrocardiogram [ECG] [EKG] (principal) | CPT/HCPCS: 93010 ==

== ENCOUNTER 2024-02-02 16:30 | Inpatient (IN) | payer OTHER, SELFPAY ==
--- NOTE | 2024-02-02 16:31 | MHC.EDTECH ---
attempted venipuncture x2. Difficult draw.
[2024-02-02 16:51] VITALS: BP 138/80; BP 148/90; PULSE 108; PULSE 130; RESP 18; TEMP 36.7; O2SAT 95; BMI 41.3
--- NOTE | 2024-02-02 17:53 | ED.GENADULT ---
HPI - General Adult General Chief complaint: General Medical Stated complaint: UNABLE TO MOVE FROM WAIST DOWN Time Seen by Provider: 02/02/24 17:52 Source: patient Mode of arrival: EMS Limitations: no limitations History of Present Illness ED Provider: amanda BROWN narrative: Patient with history of multiple sclerosis uses wheelchair otherwise mostly in bed for last 2 days patient noticed increased weakness in the lower extremities very emotional on arrival was unable to pivot today morning and fell yesterday also no loss of consciousness no headache patient not taking any medication at this time used to be on Ocrevus which did not help her. Patient does have bladder bowel incontinence Related Data Home Medications ?Medication ?Instructions ?Recorded ?Confirmed ibuprofen 600 mg tablet 600 mg PO DAILY PRN Pain 02/02/24 02/02/24 Previous Rx's ?Medication ?Instructions ?Recorded hospital bed #1 ea 07/23/22 atenolol 25 mg tablet 25 mg PO DAILY 90 days #90 tabs 11/01/23 cholecalciferol (vitamin D3) 50 50 mcg PO DAILY #90 caps 11/01/23 mcg (2,000 unit) capsule Allergies Allergy/AdvReac Type Severity Reaction Status Date / Time No Known Allergies Allergy Verified 02/02/24 16:58 [No Known Allergies*] Review of Systems Review of Systems: Yes all other systems are reviewed and are negative PMFSH Past Medical History Medical History Multiple sclerosis Bladder disorder Anxiety, generalized Hypertension, essential Surgical History History of tubal ligation Family History Family History Father Diabetes mellitus Mother No problems noted. Brother Alcoholic Sister No problems noted. Social History Social History Household Members: Family Housing: House Do you presently have visiting nurse or other home services: Yes Patient Tobacco Use Status: Never used Tobacco Tobacco use type: Cigarette Cigarette Packs Per Day: 0 Cigarettes Per Day: 5 e-Cigarette/Vaping Use: Never Used Substance Use Type: Marijuana Advance Directives Date on File: 07/02/22 service: No Current occupational status: disabled Cognitive needs: No Hearing needs: No Vision needs: Yes Physical Exam ED Vital Signs: Vital Signs - 24 hr 02/02/24 16:51 02/02/24 18:39 02/02/24 18:43 Temperature 98.0 F 98.4 F Pulse Rate 108 H 118 H Respiratory Rate 18 18 18 Blood Pressure 148/90 H 132/94 H Pulse Oximetry 95 98 Oxygen Delivery Method Room Air Room Air BMI result Body Mass Index 41.3 Appearance: Alert. Oriented X3. Emotional Eyes: PERRLA, No Nystagmus ENT: Pharynx normal. Oral Mucosa moist Neck: Normal inspection. Neck supple. CVS: Normal heart rate and rhythm. Pulses normal. Respiratory: No respiratory distress. Equal air entry bilateral, no wheezing/rales/rhonchi Abdomen: Soft and nontender. Bowel sounds are present, no mass palpable, no CVA tenderness Skin: Skin warm and dry. Normal skin color. Normal skin turgor. Extremities: No lower extremity edema. No calf tenderness dorsalis pedis 2+ bilaterally dry skin Neuro: Oriented X 3. Decreased movement lower extremity sensation intact neurovascular intact Medications Administered Generic Name Dose Route Start Last Admin Trade Name Freq PRN Reason Stop Dose Admin Enoxaparin Sodium 40 mg 02/02/24 22:00 02/02/24 21:26 Enoxaparin Sodium 40 Mg/0.4 Ml Syringe SUBCUT Not Given Q24H MIHAELA Sodium Chloride 3 ml 02/03/24 00:00 02/03/24 00:40 0.9 % Sodium Chloride Flush 3 Ml Syringe IVFLUSH Not Given QSHIFT MIHAELA Discontinued Medications Generic Name Dose Route Start Last Admin Trade Name Freq PRN Reason Stop Dose Admin Methylprednisolone Sodium 66 mls @ 66 mls/hr 02/02/24 20:32 02/02/24 22:08 Succinate 1,000 mg/ Sodium IV 02/02/24 21:31 Infused Chloride ONCE ONE Infusion Ceftriaxone Sodium 1 gm/ 50 mls @ 100 mls/hr 02/02/24 21:05 02/02/24 21:54 Sodium Chloride IV 02/02/24 21:34 Infused ONCE ONE Infusion Sodium Chloride 1,000 mls @ 999 mls/hr 02/02/24 21:30 02/02/24 23:09 Ns IV 02/02/24 22:30 Infused .Q1H1M MIHAELA Infusion Morphine Sulfate 4 mg 02/02/24 18:21 02/02/24 18:39 Morphine Sulfate 4 Mg/Ml Cartridge IVPUSH 02/02/24 18:22 4 mg ONCE ONE Administration Protocol Ondansetron HCl 4 mg 02/02/24 18:21 02/02/24 18:42 Ondansetron Hcl 4 Mg/2 Ml Vial IVPUSH 02/02/24 18:22 4 mg ONCE ONE Administration Medical Decision Making Medical Decision Making [facility] Narrative: Patient has multiple sclerosis wheelchair-bound comes here for increased weakness in the lower extremity case discussed with neurologist Dr. Pedersen advised to start on IV steroids workup also showed she has a UTI will give IV Rocephin no signs of sepsis Differential Diagnosis Differential Diagnoses: The differential diagnosis associated with the presentation includes Admission/Observation Consideration of admission/observation: Escalation of care including admission/observation considered Consult Healthcare Provider Management of the patient was discussed with: Hospitalist Lab Data [facility] Lab Attestation statement: I reviewed the patient's lab results. 02/02/24 18:47 02/02/24 18:47 Labs: Lab Results 02/02/24 02/02/24 Range/Units 18:47 20:39 WBC 10.6 (4.8-10.8) X10*3/uL RBC 4.79 (4.20-5.50) X10*6/uL Hgb 14.0 (12.0-16.0) g/dl Hct 42.3 (37.0-47.0) % MCV 88.3 (80.0-98.0) fL MCH 29.2 (27.0-33.0) pg MCHC 33.1 (31.0-35.0) g/dl RDW 13.1 (11.0-16.0) % Plt Count 419 H (160-400) X10*3/uL MPV 10.2 (9.4-12.3) fL Immature Gran % (Auto) 0.3 (0.0-0.4) % Neut % (Auto) 74.9 H (45-73) % Lymph % (Auto) 14.5 L (20-40) % [place] % (Auto) 9.6 (2-11) % Eos % (Auto) 0.3 (0-4) % Baso % (Auto) 0.4 (0-2) % Lymph # (Auto) 1.5 (1.2-4.9) X10*3/uL [place] # (Auto) 1.0 (0.1-1.2) X10*3/uL Eos # (Auto) 0.0 (0.0-0.4) X10*3/uL Baso # (Auto) 0.0 (0.0-0.2) X10*3/uL Abs Immat Gran (auto) 0.03 (0.00-0.03) X10*3/uL Absolute Neuts (auto) 8.0 (2.0-8.3) x10*3/uL Absolute Nucleated RBC 0.000 (0.0-0.012) X10*3/uL Nucleated RBC % (auto) 0.0 (0.0-0.2) /100WBC ESR 33 H (0-20) MM/HR Sodium 143 (135-145) mmol/L Potassium 4.0 (3.3-5.1) mmol/L Chloride 103 (96-108) mmol/L Carbon Dioxide 28 (22-29) mmol/L Anion Gap 16 (12-20) BUN 18 H (9-16) mg/dL Creatinine 0.67 (0.5-1.4) mg/dL Estim Creat Clear Calc 124.2 Estimated GFR > 60 Random Glucose 101 (60-115) mg/dL Calcium 10.1 (8.4-10.2) mg/dL Total Bilirubin 0.2 (0.0-1.0) mg/dL AST 12 (5-31) U/L ALT 8 (0-31) U/L Alkaline Phosphatase 100 (39-117) U/L C-Reactive Protein 6.04 H (< or = 0.50) mg/dL Total Protein 7.0 (6.5-8.0) g/dL Albumin 4.1 (3.5-5.0) g/dL Urine Color Yellow Urine Appearance Turbid Urine pH 7.5 (5.0-9.0) Ur Specific [place] 1.015 (1.005-1.025) Urine Protein 30 (1+) H (Neg-Trace) mg/dL Urine Glucose (UA) Negative (Negative) mg/dL Urine Ketones Trace (Negative) mg/dL Urine Blood Moderate (2+) H (Negative) Urine Nitrite Positive H (Negative) Ur Leukocyte Esterase Large (3+) H (Negative) Urine RBC 11-20 H (0-2) /HPF Urine WBC >50 H (0-5) /HPF Ur Squamous Epith Cells 11-20 (0-2) /HPF Urine Bacteria 4+ (None Seen) Hyaline Casts 3-5 (0-2) /LPF Discharge Plan Discharge Clinical Impression: Weakness, UTI (urinary tract infection), Multiple sclerosis exacerbation Patient Disposition: Admitted As Inpatient Interventions: Admission Worksheet (ED) Last Done: 02/03/24 00:27 Discharge Date/Time: 02/03/24 01:07
[2024-02-02 18:39] VITALS: RESP 18
[2024-02-02] MEDS: Morphine Sulfate 4 MG/ML CARTRIDGE IVPUSH (18:39)
[2024-02-02] MEDS: ondansetron HCL 4 MG/2 ML VIAL IVPUSH (18:42)
[2024-02-02 18:43] VITALS: BP 132/94; PULSE 118; RESP 18; TEMP 36.9; O2SAT 98
[2024-02-02 18:51] LABS: MANUAL DIFF FLAG NO
[2024-02-02 18:52] LABS: Basophils Percent Auto 0.4 % (0-2); Eosinophils Percent Auto 0.3 % (0-4); Hematocrit 42.3 % (37.0-47.0); Imm Gran Abs Auto 0.03 X10*3/uL (0.00-0.03); Imm Gran Pct Auto 0.3 % (0.0-0.4); Lymphocytes Absolute Auto 1.5 X10*3/uL (1.2-4.9); Lymphocytes Percent Auto 14.5 % (20-40); Mean Corpuscular HGB Conc 33.1 g/dl (31.0-35.0); Mean Corpuscular Hemoglobin 29.2 pg (27.0-33.0); Mean Corpuscular Volume 88.3 fL (80.0-98.0); Mean Platelet Volume 10.2 fL (9.4-12.3); Monocytes Percent Auto 9.6 % (2-11); Neutrophils Percent Auto 74.9 % (45-73); Platelet Count 419 X10*3/uL (160-400); Red Blood Count 4.79 X10*6/uL (4.20-5.50); Red Cell Distribution Width 13.1 % (11.0-16.0); White Blood Count 10.6 X10*3/uL (4.8-10.8)
[2024-02-02 19:16] LABS: Alanine Aminotransferase 8 U/L (0-31); Albumin Level 4.1 g/dL (3.5-5.0); Alkaline Phosphatase 100 U/L (39-117); Anion Gap 16 (12-20); Aspartate Amino Transferase 12 U/L (5-31); Bilirubin Total 0.2 mg/dL (0.0-1.0); Blood Urea Nitrogen 18 mg/dL (9-16); C Reactive Protein 6.04 mg/dL (< or = 0.50); Calcium 10.1 mg/dL (8.4-10.2); Carbon Dioxide 28 mmol/L (22-29); Chloride 103 mmol/L (96-108); Creatinine Clr Calc Pharmacy 124.2; Estimated Glomerular Filt Rate > 60; Glucose Random 101 mg/dL (60-115); Sodium 143 mmol/L (135-145)
--- NOTE | 2024-02-02 20:14 | PC.NURSE ---
pt repositioned in bed at this time, pt reports inability to adjust self in bed.
--- NOTE | 2024-02-02 20:43 | PC.NURSE ---
pt a&ox4 at this time, pt reports being 1A at this time. pt able to void with assistance, urine sample obtained and sent to lab. pt assisted in bed repositioning, pillow placed under legs. purewick in place for comfort.
[2024-02-02 20:46] LABS: Appearance Urine Turbid; Color Urine Yellow; Glucose Urine UA Negative (Negative); Leukocyte Esterase Urine Large (3+) (Negative); Nitrite Urine Positive (Negative); PH 7.5 (5.0-9.0); Specific Gravity - Urine 1.015 (1.005-1.025); UMIC TRIGGER UACC YES; Urine Blood Moderate (2+) (Negative); Urine Ketones Trace mg/dL (Negative); Urine Protein 30 (1+) mg/dL (Neg-Trace)
--- NOTE | 2024-02-02 20:52 | PHA.MEDREC ---
Pharmacy Consult ? Medication Reconciliation Pharmacy has completed the medication reconciliation. Spoke to patient to confirm med list. Patient states she is only on atenolol 25 mg daily and vitamin D3 50 mcg daily.
[2024-02-02 20:58] LABS: Bacteria Urine 4+ (None Seen); UACC Culture Trigger YES; WBC Urine >50 /HPF (0-5)
[2024-02-02] MEDS: methylPREDNISolone Sod Succ 1,000 MG in 0.9 % Sodium Chloride 50 ML 66 MG IV (21:08)
--- NOTE | 2024-02-02 21:09 | PM.IMHP ---
History of Present Illness Date of Service: 02/02/24 Chief Complaint: Weakness This is a 53-year-old female with pertinent history of multiple sclerosis, mood disorder, hypertension who presents to the emergency department for evaluation of generalized weakness and difficulty with ambulation. Patient states she normally uses a walker to get up and take a couple of steps. Patient has not been able to get up and use her walker for the last couple of days. Patient states she feels weak. Also endorses increased urinary frequency with incontinence and change in odor of urine. Does have history of UTI in the past. Patient states she is currently not taking Ocrevus for MS (which she was taking previously but stopped as it was not helping her) and is not on any steroids. Has not seen a neurologist in over 2 years. No fever, chills, nausea, vomiting, chest pain, palpitations, shortness of breath, abdominal pain, changes in urinary or bowel habits. Admits poor p.o. intake. In the emergency department, urine concerning for UTI. Neurology was consulted and patient was given IV steroids for possible of MS flare. Review of Systems Constitutional: Constitutional: Reports fatigue, Reports lethargy, Reports malaise, Reports poor appetite and Reports weakness Cardiovascular: Cardiovascular: Reports no additional cardiovascular complaints Respiratory: Respiratory: Reports no additional respiratory complaints Gastrointestinal: Gastrointestinal: Reports no additional gastrointestinal complaints Genitourinary: Genitourinary: Reports urinary incontinence and Reports urinary urgency Neurologic: Reports weakness Endocrine: Endocrine: Reports fatigue [facility] Medical History Multiple sclerosis Bladder disorder Anxiety, generalized Hypertension, essential Family History Father Diabetes mellitus Mother No problems noted. Brother Alcoholic Sister No problems noted. Surgical History History of tubal ligation Social History Household Members: Children Housing: House Do you presently have visiting nurse or other home services: Yes (PT/OT) Patient Tobacco Use Status: Current everyday Tobacco user Tobacco use type: Cigarette Cigarette Packs Per Day: 0 Cigarettes Per Day: 5 Smoked in Last 30 Days: No e-Cigarette/Vaping Use: Never Used Use of substances other than those prescribed or required for medical reasons: No Substance Use Type: Marijuana Advance Directives: Yes Advance Directives on File: Yes Advance Directives Date on File: 07/02/22 Do you have a plan to hurt others: No Plan service: No Current occupational status: disabled Cognitive needs: No Hearing needs: No Vision needs: Yes Meds Allergies Allergy/AdvReac Type Severity Reaction Status Date / Time No Known Allergies Allergy Verified 02/02/24 16:58 [No Known Allergies*] Active Medications: Current Medications Methylprednisolone Sodium Succinate 1,000 mg/ Sodium Chloride 66 mls @ 66 mls/hr IV ONCE ONE Stop: 02/02/24 21:31 Last Admin: 02/02/24 21:08 Dose: 66 mls/hr Ceftriaxone Sodium 1 gm/ (Sodium Chloride) 50 mls @ 100 mls/hr IV ONCE ONE Stop: 02/02/24 21:34 Home Medications ?Medication ?Instructions ?Recorded ?Confirmed ?Last Taken ?Type ibuprofen 600 mg tablet 600 mg PO DAILY PRN Pain 02/02/24 02/02/24 Unknown History Physical Exam Vital Signs and Narrative: Vital Signs: Last Vital Signs Temp 98.4 F 02/02/24 18:43 Pulse 118 H 02/02/24 18:43 Resp 18 02/02/24 18:43 BP 132/94 H 02/02/24 18:43 Pulse Ox 98 02/02/24 18:43 O2 Del Method Room Air 02/02/24 18:43 BMI result Body Mass Index 41.3 Middle-aged female lying in bed in no distress Neck supple, no JVD Regular rate and rhythm, S1-S2 heard Regular breath sounds bilaterally, no wheezing or crackles appreciated Abdomen soft nontender, no guarding, no rigidity Patient is awake, alert and oriented to self, place, time and person ; no focal motor deficit, lower extremity weakness present Psych: Normal mood No pedal edema Results Labs 02/02/24 18:47 02/02/24 18:47 Labs: Laboratory Results - last 24 hr 02/02/24 02/02/24 18:47 20:39 MCV 88.3 MCH 29.2 MCHC 33.1 RDW 13.1 Plt Count 419 H MPV 10.2 Immature Gran % (Auto) 0.3 Neut % (Auto) 74.9 H Lymph % (Auto) 14.5 L [place] % (Auto) 9.6 Eos % (Auto) 0.3 Baso % (Auto) 0.4 Lymph # (Auto) 1.5 [place] # (Auto) 1.0 Eos # (Auto) 0.0 Baso # (Auto) 0.0 Abs Immat Gran (auto) 0.03 Absolute Neuts (auto) 8.0 Absolute Nucleated RBC 0.000 Nucleated RBC % (auto) 0.0 Anion Gap 16 Estim Creat Clear Calc 124.2 Estimated GFR > 60 Random Glucose 101 Calcium 10.1 Total Bilirubin 0.2 AST 12 ALT 8 Alkaline Phosphatase 100 C-Reactive Protein 6.04 H Total Protein 7.0 Albumin 4.1 Urine Color Yellow Urine Appearance Turbid Urine pH 7.[address] [place] 1.015 Urine Protein 30 (1+) H Urine Glucose (UA) Negative Urine Ketones Trace Urine Blood Moderate (2+) H Urine Nitrite Positive H Ur Leukocyte Esterase Large (3+) H Urine RBC 11-20 H Urine WBC >50 H Ur Squamous Epith Cells 11-20 Urine Bacteria 4+ Hyaline Casts 3-5 Assessment and Plan (1) Acute UTI: Status: Acute (2) Weakness: Status: Acute Plan This is a 53-year-old female with pertinent history of multiple sclerosis, mood disorder, hypertension who presents to the emergency department for evaluation of generalized weakness and difficulty with ambulation. #. Acute UTI: Will admit patient and initiate IV ceftriaxone. Follow urine culture. No sepsis #. Generalized weakness, in the setting of above versus MS flare: Neurology consulted in the ER, patient being given 1 g Solu-Medrol. Appreciate Neurology assistance. Defer imaging and further steroids to Neurology. Patient unable to ambulate due to weakness. Will need PT consult for disposition #. Hypertension: On atenolol Med rec pending DVT prophylaxis: Lovenox Full code Admit as inpatient and will require two night minimum hospital stay for IV antibiotics, evaluation of weakness and therapy evaluation for disposition (as above), which is not possible in a lesser acute setting. Specialist consult pending Quality Stroke Does the patient have a stroke diagnosis?: No VTE Prior VTE?: No VTE Risk Level:: Medical - moderate - high VTE Device Contraindication: Treatment Not Indicated VTE Drug Contraindication: N/A - Med Ordered
[2024-02-02] MEDS: cefTRIAXone sodium 1 GM in 0.9 % Sodium Chloride 50 ML IV (21:24)
[2024-02-02] MEDS: 0.9 % Sodium Chloride 1,000 ML 999 ML IV (22:08)
[2024-02-02 22:59] LABS: Erythrocyte Sedimentation Rate 33 MM/HR (0-20)
[2024-02-03 01:24] VITALS: BMI 18.9
[2024-02-03 01:30] VITALS: BP 124/75; PULSE 84; RESP 16; TEMP 36.4; O2SAT 94
[2024-02-03 06:57] LABS: Basophils Percent Auto 0.3 % (0-2); Hematocrit 42.1 % (37.0-47.0); Hemoglobin 13.6 g/dl (12.0-16.0); Imm Gran Abs Auto 0.02 X10*3/uL (0.00-0.03); Imm Gran Pct Auto 0.3 % (0.0-0.4); Lymphocytes Absolute Auto 0.4 X10*3/uL (1.2-4.9); Lymphocytes Percent Auto 5.5 % (20-40); MANUAL DIFF FLAG SCAN; Mean Corpuscular HGB Conc 32.3 g/dl (31.0-35.0); Mean Corpuscular Hemoglobin 28.9 pg (27.0-33.0); Mean Corpuscular Volume 89.6 fL (80.0-98.0); Mean Platelet Volume 10.4 fL (9.4-12.3); Monocytes Absolute Auto 0.1 X10*3/uL (0.1-1.2); Monocytes Percent Auto 0.9 % (2-11); Neutrophils Absolute Auto 6.4 x10*3/uL (2.0-8.3); Platelet Count 399 X10*3/uL (160-400); SCAN SMEAR FLAG 1; White Blood Count 6.9 X10*3/uL (4.8-10.8)
[2024-02-03 07:10] LABS: Anion Gap 14 (12-20); Blood Urea Nitrogen 17 mg/dL (9-16); Calcium 9.6 mg/dL (8.4-10.2); Carbon Dioxide 28 mmol/L (22-29); Chloride 105 mmol/L (96-108); Creatinine Clr Calc Pharmacy 82.7; Estimated Glomerular Filt Rate > 60; Glucose Random 177 mg/dL (60-115); Sodium 143 mmol/L (135-145)
[2024-02-03 07:40] LABS: SLIDE REVIEW VERIFIED
[2024-02-03 07:46] VITALS: BP 126/87; PULSE 93; RESP 16; TEMP 36.6; O2SAT 96
[2024-02-03 08:52] VITALS: BP 126/87; PULSE 93
[2024-02-03] MEDS: atenoloL 25 MG TABLET PO (08:52)
[2024-02-03] MEDS: 0.9 % Sodium Chloride Flush 3 ML SYRINGE IVFLUSH ×3 (08:52→21:48)
[2024-02-03] MEDS: Cholecalciferol (Vitamin D3) 25 MCG TABLET 50 MCG PO (08:52)
[2024-02-03 09:08] LABS: Glucose, Whole Blood 280 mg/dL (60-115)
[2024-02-03] MEDS: Ibuprofen 600 MG TABLET PO (09:26)
--- NOTE | 2024-02-03 10:11 | HO.PM.IMPN ---
Subjective Subjective Date of Service: 02/03/24 Interval History: pain, numbness Physical Exam Vital Signs: Vital Signs: Last Vital Signs Temp 97.9 F 02/03/24 07:46 Pulse 93 02/03/24 08:52 Resp 16 02/03/24 07:46 BP 126/87 02/03/24 08:52 Pulse Ox 96 02/03/24 07:46 O2 Del Method Room Air 02/03/24 07:46 BMI result Body Mass Index 18.9 General: AO X 3, no acute distress Resp: CTA bilateral, no accessory muscles used CVS: S1,S2,RRR GI: soft, non tender, non distended Neuro: motor grossly intact, alert Psych: appropriate affect, appropriate insight Objective Data Active Medications Acetaminophen (Acetaminophen 325 Mg Tablet) 650 mg PO Q6H PRN PRN Reason: Pain, Mild (Pain Scale 1-3), fever or headache Atenolol (Atenolol 25 Mg Tablet) 25 mg PO DAILY [facility]; Protocol Last Admin: 02/03/24 08:52 Dose: 25 mg Documented By: VEE Calcium Carbonate (Calcium Carbonate 750 Mg Tab.Chew) 750 mg PO Q4H PRN PRN Reason: Heartburn Enoxaparin Sodium (Enoxaparin Sodium 40 Mg/0.4 Ml Syringe) 40 mg SUBCUT Q24H [facility] Last Admin: 02/02/24 21:26 Dose: Not Given Documented By: SALMA Non-Admin Reason: Patient Refused Ceftriaxone Sodium 1 gm/ (Sodium Chloride) 50 mls @ 100 mls/hr IV Q24H [facility] Magnesium Hydroxide (Milk Of Magnesia 30 Ml Oral.Susp) 30 ml PO DAILY PRN PRN Reason: Constipation Melatonin (Melatonin 3 Mg Tablet) 6 mg PO BEDTIME PRN PRN Reason: Insomnia Ondansetron HCl (Ondansetron Hcl 4 Mg/2 Ml Vial) 4 mg IVPUSH Q8H PRN PRN Reason: Nausea and Vomiting Sodium Chloride (0.9 % Sodium Chloride Flush 3 Ml Syringe) 3 ml IVFLUSH QSHIFT [facility] Last Admin: 02/03/24 08:52 Dose: 3 ml Documented By: VEE Vitamin D (Cholecalciferol (Vitamin D3) 25 Mcg Tablet) 50 mcg PO DAILY [facility] Last Admin: 02/03/24 08:52 Dose: 50 mcg Documented By: VEE Labs 02/03/24 05:35 02/03/24 05:35 Labs: Laboratory Results - last 24 hr 02/02/24 02/02/24 02/03/24 18:47 20:39 05:35 MCV 88.3 89.6 MCH 29.2 28.9 MCHC 33.1 32.3 RDW 13.1 13.0 Plt Count 419 H 399 MPV 10.2 10.4 Immature Gran % (Auto) 0.3 0.3 Neut % (Auto) 74.9 H 93.0 H Lymph % (Auto) 14.5 L 5.5 L [place] % (Auto) 9.6 0.9 L Eos % (Auto) 0.3 0.0 Baso % (Auto) 0.4 0.3 Lymph # (Auto) 1.5 0.4 L [place] # (Auto) 1.0 0.1 Eos # (Auto) 0.0 0.0 Baso # (Auto) 0.0 0.0 Abs Immat Gran (auto) 0.03 0.02 Absolute Neuts (auto) 8.0 6.4 Absolute Nucleated RBC 0.000 0.000 Nucleated RBC % (auto) 0.0 0.0 Smear Tech's Comments VERIFIED ESR 33 H Anion Gap 16 14 Estim Creat Clear Calc 124.2 82.7 Estimated GFR > 60 > 60 POC Glucose Random Glucose 101 177 H Calcium 10.1 9.6 Total Bilirubin 0.2 AST 12 ALT 8 Alkaline Phosphatase 100 C-Reactive Protein 6.04 H Total Protein 7.0 Albumin 4.1 Urine Color Yellow Urine Appearance Turbid Urine pH 7.5 Ur Specific [place] 1.015 Urine Protein 30 (1+) H Urine Glucose (UA) Negative Urine Ketones Trace Urine Blood Moderate (2+) H Urine Nitrite Positive H Ur Leukocyte Esterase Large (3+) H Urine RBC 11-20 H Urine WBC >50 H Ur Squamous Epith Cells 11-20 Urine Bacteria 4+ Hyaline Casts 3-5 02/03/24 09:05 MCV MCH MCHC RDW Plt Count MPV Immature Gran % (Auto) Neut % (Auto) Lymph % (Auto) [place] % (Auto) Eos % (Auto) Baso % (Auto) Lymph # (Auto) [place] # (Auto) Eos # (Auto) Baso # (Auto) Abs Immat Gran (auto) Absolute Neuts (auto) Absolute Nucleated RBC Nucleated RBC % (auto) Smear Tech's Comments ESR Anion Gap Estim Creat Clear Calc Estimated GFR POC Glucose 280 H Random Glucose Calcium Total Bilirubin AST ALT Alkaline Phosphatase C-Reactive Protein Total Protein Albumin Urine Color Urine Appearance Urine pH Ur Specific [place] Urine Protein Urine Glucose (UA) Urine Ketones Urine Blood Urine Nitrite Ur Leukocyte Esterase Urine RBC Urine WBC Ur Squamous Epith Cells Urine Bacteria Hyaline Casts Microbiology Microbiology Results: Microbiology 02/02/24 20:58 Urine Culture - Preliminary Urine clean catch - Clean Catch Midstream Culture in progress. Assessment and Plan (1) Multiple sclerosis exacerbation: Status: Acute Plan 53F PMH multiple sclerosis, mood disorder, hypertension presented with weakness Multiple sclerosis with acute flare due to acute UTI Continue IV ceftriaxone, follow-up culture Solu-Medrol 1 g daily, follow-up neurology PT eval Hypertension Atenolol DVT prophylaxis with Lovenox Full Code reason for continued hospitalization: Awaiting cultures, high-dose steroids Quality Stroke Does the patient have a stroke diagnosis?: No VTE Prior VTE?: No VTE Risk Level:: Medical - moderate - high VTE Device Contraindication: Treatment Not Indicated VTE Drug Contraindication: N/A - Med Ordered
[2024-02-03 11:14] VITALS: BMI 18.9
--- NOTE | 2024-02-03 11:58 | PC.NURSE ---
Addendum entered by Vikki Scott RN 02/03/24 17:25: Left ankle foam falling off multiple times. Pt agreeable to heel boots. Original Note: Bleachable redness noted to left ankle, foam dressing applied. Foam applied to right heel for prevention, heels floating on pillows.
--- NOTE | 2024-02-03 12:40 | P.CNNE_ITS ---
History of Present Illness Data of Consult Service Date: 02/03/24 Primary Care Provider: Armen Pedersen MD [facility] Reason for consult: Multiple sclerosis 53 years old woman who provided her own history stating that she was diagnosed with multiple sclerosis number of years ago. She used to take daily injection and then a pill but has not taken any immunomodulating drug for number of years. She usually was following [facility] neurology but says not seen anyone for few years. She has intermittently gotten steroids but said that they also have not worked. She was living home. She came to hospital with generalized weakness. ER physician called me last night stating that there was no obvious reason and a dose of steroid was given for possible MS exacerbation. Review of Systems 2 Review of Systems: No recent cold or flu-like illness or trauma or seizure PMFSH Past Medical History Medical History Multiple sclerosis Bladder disorder Anxiety, generalized Hypertension, essential Family History Family History Father Diabetes mellitus Mother No problems noted. Brother Alcoholic Sister No problems noted. Surgical History Surgical History History of tubal ligation Social History Social History Household Members: Family Housing: House Do you presently have visiting nurse or other home services: Yes Patient Tobacco Use Status: Never used Tobacco Tobacco use type: Cigarette Cigarette Packs Per Day: 0 Cigarettes Per Day: 5 e-Cigarette/Vaping Use: Never Used Substance Use Type: Marijuana Advance Directives Date on File: 07/02/22 service: No Current occupational status: disabled Cognitive needs: No Hearing needs: No Vision needs: Yes Meds Allergies Allergy/AdvReac Type Severity Reaction Status Date / Time No Known Allergies Allergy Verified 02/02/24 16:58 [No Known Allergies*] Active Medications: Current Medications Acetaminophen (Acetaminophen 325 Mg Tablet) 650 mg PO Q6H PRN PRN Reason: Pain, Mild (Pain Scale 1-3), fever or headache Atenolol (Atenolol 25 Mg Tablet) 25 mg PO DAILY MIHAELA; Protocol Last Admin: 02/03/24 08:52 Dose: 25 mg Calcium Carbonate (Calcium Carbonate 750 Mg Tab.Chew) 750 mg PO Q4H PRN PRN Reason: Heartburn Enoxaparin Sodium (Enoxaparin Sodium 40 Mg/0.4 Ml Syringe) 40 mg SUBCUT Q24H REPLACED BY [facility] Last Admin: 02/02/24 21:26 Dose: Not Given Ceftriaxone Sodium 1 gm/ (Sodium Chloride) 50 mls @ 100 mls/hr IV Q24H REPLACED BY [facility] Methylprednisolone Sodium Succinate 1,000 mg/ Sodium Chloride 66 mls @ 66 mls/hr IV DAILY@1800 REPLACED BY [facility] Magnesium Hydroxide (Milk Of Magnesia 30 Ml Oral.Susp) 30 ml PO DAILY PRN PRN Reason: Constipation Melatonin (Melatonin 3 Mg Tablet) 6 mg PO BEDTIME PRN PRN Reason: Insomnia Ondansetron HCl (Ondansetron Hcl 4 Mg/2 Ml Vial) 4 mg IVPUSH Q8H PRN PRN Reason: Nausea and Vomiting Sodium Chloride (0.9 % Sodium Chloride Flush 3 Ml Syringe) 3 ml IVFLUSH QSHIFT REPLACED BY [facility] Last Admin: 02/03/24 08:52 Dose: 3 ml Vitamin D (Cholecalciferol (Vitamin D3) 25 Mcg Tablet) 50 mcg PO DAILY REPLACED BY [facility] Last Admin: 02/03/24 08:52 Dose: 50 mcg Home Medications ?Medication ?Instructions ?Recorded ?Confirmed ?Last Taken ?Type ibuprofen 600 mg tablet 600 mg PO DAILY PRN Pain 02/02/24 02/02/24 Unknown History Physical Exam 2 Vital Signs: Vital Signs: Last Vital Signs Temp 97.9 F 02/03/24 07:46 Pulse 93 02/03/24 08:52 Resp 16 02/03/24 07:46 BP 126/87 02/03/24 08:52 Pulse Ox 96 02/03/24 07:46 O2 Del Method Room Air 02/03/24 07:46 BMI result Body Mass Index 18.9 Neuro: Other: Alert and awake with normal spontaneity of speech fluency comprehension and affect. Face is symmetrical. Visual guzman are full. Extraocular muscles are intact. There is no nystagmus. Upper extremity strength is okay. She is unable to move her legs. Legs are slightly spastic. Plantars were flat. Results Labs 02/03/24 05:35 02/03/24 05:35 Labs: Short CBC 02/02/24 02/03/24 Range/Units 18:47 05:35 WBC 10.6 6.9 (4.8-10.8) X10*3/uL Hgb 14.0 13.6 (12.0-16.0) g/dl Hct 42.3 42.1 (37.0-47.0) % Plt Count 419 H 399 (160-400) X10*3/uL BMP 02/02/24 02/03/24 18:47 05:35 Sodium 143 143 Potassium 4.0 4.0 Chloride 103 105 Carbon Dioxide 28 28 BUN 18 H 17 H Creatinine 0.67 0.65 Calcium 10.1 9.6 Liver Function 02/02/24 Range/Units 18:47 Total Bilirubin 0.2 (0.0-1.0) mg/dL AST 12 (5-31) U/L ALT 8 (0-31) U/L Alkaline Phosphatase 100 (39-117) U/L Albumin 4.1 (3.5-5.0) g/dL Urine 02/02/24 Range/Units 20:39 Urine Color Yellow Urine Appearance Turbid Urine pH 7.5 (5.0-9.0) Ur Specific [place] 1.015 (1.005-1.025) Urine Protein 30 (1+) H (Neg-Trace) mg/dL Urine Glucose (UA) Negative (Negative) mg/dL Microbiology Microbiology Results: Microbiology 02/02/24 20:58 Urine clean catch - Clean Catch Midstream Urine Culture - Preliminary Culture in progress. Assessment and Plan (1) Multiple sclerosis exacerbation: Status: Acute 53 years old woman with underlying diagnosis of multiple sclerosis following [facility] neurology. At this time records were not available for confirmation. She has been paraplegic and living at home. Her present worsening might have been related to UTI instead of physical MS lesion. I recommend treatment for a UTI and not giving her anymore steroids. Otherwise no immunomodulating agent right away was needed. She can continue to follow-up with her neurologist. Procedures Date of Service Date of Service: 02/03/24
--- NOTE | 2024-02-03 13:09 | MHC.CM.PN ---
PT REPORTS SHE LIVES AT HOME WITH HER SON, CHASITY SHE HAS DAILY [employer] TOTALLING 34.5 HOURS PER WEEK PT HAS A ROLLATOR SHE USES PRIMARILY, SHE ALSO HAS A WHEEL CHAIR BUT SAYS SHE IS AFRAID SHE WILL LOSE THE ABILITY TO STAND IF SHE USES IT SHE ALSO REPORTS SHE HAS A HOSPITAL BED HOWEVER FINDS IT HARD TO SLEEP IN AND PREFERS A REGULAR BED PT HAS A HCP ON FILE AND HER PCP IS LISTED LINDA JARAMILLO, SHE CONFIRMS BOTH ARE ACCURATE IMM DELIVERED DCP: HOME, RESUME [employer] SON WILL TRANSPORT
[2024-02-03 14:31] VITALS: BP 126/87; PULSE 93
[2024-02-03 14:58] VITALS: BP 122/67; PULSE 63; RESP 18; TEMP 36.5; O2SAT 96
[2024-02-03 19:27] VITALS: BP 124/73; PULSE 69; RESP 18; TEMP 36.8; O2SAT 98
[2024-02-03] MEDS: cefTRIAXone sodium 1 GM in 0.9 % Sodium Chloride 50 ML IV (21:38)
[2024-02-03] MEDS: Enoxaparin Sodium 40 MG/0.4 ML SYRINGE SUBCUT (21:39)
[2024-02-03] MEDS: traMADoL HCL 50 MG TABLET 25 MG PO (22:13)
--- NOTE | 2024-02-03 22:24 | MHC.PIE ---
p; pt c/o pain 10/10 throughout body, ache. note; when asked what she do at home for pain, pt reports she has high tolerance for pain med and pt PCP refused to prescribe narcotics and has prescribed medical marijuana for pain. i; dr lynch notified. new order ultram now e; will cont to monitor
[2024-02-04 03:27] VITALS: BP 136/72; PULSE 64; RESP 18; TEMP 36.2; O2SAT 97
[2024-02-04 07:46] VITALS: BP 129/64; PULSE 82; RESP 18; TEMP 36.2; O2SAT 98
[2024-02-04 08:13] VITALS: BP 129/64; PULSE 82
[2024-02-04] MEDS: Cholecalciferol (Vitamin D3) 25 MCG TABLET 50 MCG PO (08:13)
[2024-02-04] MEDS: atenoloL 25 MG TABLET PO (08:13)
[2024-02-04] MEDS: Acetaminophen 325 MG TABLET 650 MG PO (08:14)
[2024-02-04] MEDS: 0.9 % Sodium Chloride Flush 3 ML SYRINGE IVFLUSH ×3 (08:15→20:54)
--- NOTE | 2024-02-04 08:42 | P.PNIM_ITS ---
Subjective Subjective Date of Service: 02/04/24 Interval History: weakness Physical Exam 2 Vital Signs: Vital Signs: Last Vital Signs Temp 97.1 F 02/04/24 07:46 Pulse 82 02/04/24 08:13 Resp 18 02/04/24 07:46 BP 129/64 02/04/24 08:13 Pulse Ox 98 02/04/24 07:46 O2 Del Method Room Air 02/04/24 03:27 BMI result Body Mass Index 18.9 Neuro: Other: Alert and awake with normal spontaneity of speech fluency comprehension and affect. Face is symmetrical. Visual guzman are full. Extraocular muscles are intact. There is no nystagmus. Upper extremity strength is okay. She is unable to move her legs. Legs are slightly spastic. Plantars were flat. Objective Data Active Medications Acetaminophen (Acetaminophen 325 Mg Tablet) 650 mg PO Q6H PRN PRN Reason: Pain, Mild (Pain Scale 1-3), fever or headache Last Admin: 02/04/24 08:14 Dose: 650 mg Documented By: CONSTANTINE Atenolol (Atenolol 25 Mg Tablet) 25 mg PO DAILY [facility]; Protocol Last Admin: 02/04/24 08:13 Dose: 25 mg Documented By: CONSTANTINE Calcium Carbonate (Calcium Carbonate 750 Mg Tab.Chew) 750 mg PO Q4H PRN PRN Reason: Heartburn Enoxaparin Sodium (Enoxaparin Sodium 40 Mg/0.4 Ml Syringe) 40 mg SUBCUT Q24H [facility] Last Admin: 02/03/24 21:39 Dose: 40 mg Documented By: KARL Ceftriaxone Sodium 1 gm/ (Sodium Chloride) 50 mls @ 100 mls/hr IV Q24H [facility] Last Infusion: 02/03/24 22:24 Dose: Infused Documented By: KARL Magnesium Hydroxide (Milk Of Magnesia 30 Ml Oral.Susp) 30 ml PO DAILY PRN PRN Reason: Constipation Melatonin (Melatonin 3 Mg Tablet) 6 mg PO BEDTIME PRN PRN Reason: Insomnia Ondansetron HCl (Ondansetron Hcl 4 Mg/2 Ml Vial) 4 mg IVPUSH Q8H PRN PRN Reason: Nausea and Vomiting Sodium Chloride (0.9 % Sodium Chloride Flush 3 Ml Syringe) 3 ml IVFLUSH QSHIFT [facility] Last Admin: 02/04/24 08:15 Dose: 3 ml Documented By: CONSTANTINE Vitamin D (Cholecalciferol (Vitamin D3) 25 Mcg Tablet) 50 mcg PO DAILY MIHAELA Last Admin: 02/04/24 08:13 Dose: 50 mcg Documented By: CONSTANTINE Labs 02/03/24 05:35 02/03/24 05:35 Labs: Laboratory Results - last 24 hr 02/03/24 09:05 POC Glucose 280 H Microbiology Microbiology Results: Microbiology 02/02/24 20:58 Urine Culture - Preliminary Urine clean catch - Clean Catch Midstream Culture in progress. Assessment and Plan (1) Multiple sclerosis exacerbation: Status: Acute Plan 53F PMH multiple sclerosis, mood disorder, hypertension presented with weakness acute UTI Continue IV ceftriaxone, follow-up culture MS neuro appreciated, unlikely to benefit from further steroids pt recommending STR however, patient would like to go home Hypertension Atenolol DVT prophylaxis with Lovenox Full Code reason for continued hospitalization: Awaiting cultures Quality Stroke Does the patient have a stroke diagnosis?: No VTE Prior VTE?: No VTE Risk Level:: Medical - moderate - high VTE Device Contraindication: Treatment Not Indicated VTE Drug Contraindication: N/A - Med Ordered
[2024-02-04] MEDS: oxyCODONE HCl Immed Release 5 MG TABLET PO ×2 (10:10→17:50)
--- NOTE | 2024-02-04 12:59 | MHC.CM.PN ---
PT NOT YET CLEARED TO DC DCP REMAINS HOME WITH RESUMPTION OF C[employer]TING [employer] SON TO TRANSPORT
--- NOTE | 2024-02-04 15:29 | PC.NURSE ---
pt reports having BM wednesday or wednesday but refused bowel regimen, stating she might go soon
[2024-02-04 15:51] VITALS: BP 105/60; PULSE 60; RESP 16; TEMP 36.1; O2SAT 99
[2024-02-04 19:22] VITALS: BP 117/67; PULSE 66; RESP 16; TEMP 36.6; O2SAT 97
[2024-02-04] MEDS: cefTRIAXone sodium 1 GM in 0.9 % Sodium Chloride 50 ML IV (20:54)
[2024-02-05 03:10] VITALS: BP 116/67; PULSE 71; RESP 16; TEMP 36.1; O2SAT 97
[2024-02-05 08:00] VITALS: BP 126/71; PULSE 75; RESP 18; TEMP 36.3; O2SAT 98
[2024-02-05] MEDS: Acetaminophen 325 MG TABLET 650 MG PO (08:38)
[2024-02-05] MEDS: atenoloL 25 MG TABLET PO (08:38)
[2024-02-05] MEDS: Cholecalciferol (Vitamin D3) 25 MCG TABLET 50 MCG PO (08:39)
[2024-02-05] MEDS: 0.9 % Sodium Chloride Flush 3 ML SYRINGE IVFLUSH (08:47)
--- NOTE | 2024-02-05 08:50 | P.DS_ITS ---
DS: Providers Provider Date of Service: 02/05/24 Date of admission: 02/02/24 21:09 Primary care physician: Armen Pedersen MD Consults: 02/02/24 21:20 Consult to Neurology Routine Consulting Provider: [facility] Reason for consultation: ?MS Flare 02/03/24 17:26 Consult to Wound Care Routine Reason for consultation: redness to left ankle DS: Diagnosis Discharge Diagnosis (1) Multiple sclerosis exacerbation: Status: Acute DS: Summary Hospital Course Hospital Course: from initial hpi: 53-year-old female with pertinent history of multiple sclerosis, mood disorder, hypertension who presents to the emergency department for evaluation of generalized weakness and difficulty with ambulation. Patient states she normally uses a walker to get up and take a couple of steps. Patient has not been able to get up and use her walker for the last couple of days. Patient states she feels weak. Also endorses increased urinary frequency with incontinence and change in odor of urine. Does have history of UTI in the past. Patient states she is currently not taking Ocrevus for MS (which she was taking previously but stopped as it was not helping her) and is not on any steroids. Has not seen a neurologist in over 2 years. No fever, chills, nausea, vomiting, chest pain, palpitations, shortness of breath, abdominal pain, changes in urinary or bowel habits. Admits poor p.o. intake. In the emergency department, urine concerning for UTI. Neurology was consulted and patient was given IV steroids for possible of MS flare. hospital course: Patient was admitted for acute UTI. She was treated with IV ceftriaxone. Urine culture grew Proteus and is still growing another Gram-negative sammi, final cultures are still pending. However patient's symptoms have improved and will be discharged home on 5 days of cefuroxime. Final culture should be followed up and antibiotics adjusted as needed. For multiple sclerosis was initially treated for acute flare with high-dose IV steroids. Was seen by Neurology felt acute MS flare unlikely and patient would not benefit from further steroids. She was seen by physical therapy recommended short-term rehab, however, patient was not interested. For hypertension was continued on atenolol. Time Attestation Discharge Coordination Time (in mins): 32 Quality: Safe Use of Opioids Does Pt have an Active Cancer Diagnosis on the Problem List?: No Quality: Stroke Does the patient have a stroke diagnosis?: No Physical Exam Vital Signs: Vital Signs: Last Vital Signs Temp 97.4 F 02/05/24 08:00 Pulse 75 02/05/24 08:00 Resp 18 02/05/24 08:00 BP 126/71 02/05/24 08:00 Pulse Ox 98 02/05/24 08:00 O2 Del Method Room Air 02/05/24 08:00 BMI result Body Mass Index 18.9 Neuro: Other: Alert and awake with normal spontaneity of speech fluency comprehension and affect. Face is symmetrical. Visual guzman are full. Extraocular muscles are intact. There is no nystagmus. Upper extremity strength is okay. She is unable to move her legs. Legs are slightly spastic. Plantars were flat. DS: Data Data Completed and Pending Labs on day of discharge: Preliminary micro results at discharge 02/02/24 20:58 Urine Culture - Preliminary Urine clean catch - Clean Catch Midstream Proteus species Gram negative sammi Discharge Plan Discharge Anticipated Discharge Date/Time: 02/05/24 08:47 Patient Disposition: Home, Self-Care Discharge Diagnosis: uti Referrals: Armen Pedersen MD [Primary Care Provider] - 1 Week Discharge Medications: New cefuroxime axetil 500 mg tablet 500 mg PO BID Qty: 10 0RF Continued (DME) hospital bed Kit See Rx Instructions .Route Qty: 1 0RF Rx Instructions: As directed atenolol 25 mg tablet 25 mg PO DAILY 90 Days Qty: 90 1RF cholecalciferol (vitamin D3) 50 mcg (2,000 unit) capsule 50 mcg PO DAILY Qty: 90 1RF ibuprofen 600 mg Tablet 600 mg PO DAILY PRN (Reason: Pain) Discharge Orders: Discharge Order (Routine); Ordered 02/05/24 Ordered By: Levi Alas Diet: Advance to usual diet Activity on Discharge: As tolerated Stand Alone Forms: Patient Portal Discharge page Print Language: Belarusian Care Plan Goals: recovery Health Concerns: uti Plan of Treatment: 5 more days ceftin, follow up final cultures and adjust antibiotics if needed Assessment: see above
--- NOTE | 2024-02-05 10:24 | MHC.CM.PN ---
PT WILL DC HOME TODAY WITH RESUMPTION OF [employer] SON TO TRANSPORT
== END 2024-02-05 10:22 | disposition home or self-care (01) | DRG 690 ==
LOC: HO.ED 17:52 → HO.EDOVER 21:18 → HO.S3 02-03 00:14
PROVIDERS: Admitting Provider Student in an Organized Health Care Education/Training Program; Emergency Provider Internal Medicine; PCP Internal Medicine; Visit Provider Internal Medicine
DX: N39.0 Urinary tract infection, site not specified (principal); G82.20 Paraplegia, unspecified; G35 Multiple sclerosis; F41.1 Generalized anxiety disorder; I10 Essential (primary) hypertension; Z91.199 Patient's noncompliance with other medical treatment and regimen due to unspecified reason; B96.4 Proteus (mirabilis) (morganii) as the cause of diseases classified elsewhere; Z79.899 Other long term (current) drug therapy
CPT/HCPCS: 36415; 80048; 80053; 81001; 82947; 85025; 85652; 86140; 87086; 87088; 87186; 97162; 99285; J0696; J1650; J2270; J2405; J2919

== ENCOUNTER → 2024-02-02 21:09 | Outpatient (BNV) | payer OTHER, SELFPAY | PROVIDERS: Admitting Provider Student in an Organized Health Care Education/Training Program; Emergency Provider Internal Medicine; PCP Internal Medicine; Visit Provider Student in an Organized Health Care Education/Training Program | DX: G35 Multiple sclerosis (principal) | CPT/HCPCS: 99223; 99232; 99239 ==

== ENCOUNTER → 2024-02-02 21:09 | Outpatient (BNV) | payer OTHER, SELFPAY | PROVIDERS: Admitting Provider Student in an Organized Health Care Education/Training Program; Emergency Provider Internal Medicine; PCP Internal Medicine; Visit Provider Psychiatry & Neurology Neurology | DX: G35 Multiple sclerosis (principal) | CPT/HCPCS: 99222 ==

== ENCOUNTER 2024-03-24 15:34 | Outpatient (REF) | payer OTHER, SELFPAY ==
[2024-03-24 16:44] LABS: Urine Cytology See Pathology rpt
== END 2024-03-24 15:35 | disposition home or self-care (01) ==
LOC: HO.LNP 15:34
PROVIDERS: PCP Internal Medicine; Visit Provider Nurse Practitioner Family
DX: N39.0 Urinary tract infection, site not specified (principal); R32 Unspecified urinary incontinence; N32.89 Other specified disorders of bladder
CPT/HCPCS: 51701; 81003; 87086; 87088; 87186; 88112; 99202

== ENCOUNTER 2024-03-24 15:34 | Outpatient (AMB) | payer OTHER, SELFPAY ==
--- NOTE | 2024-03-24 15:59 | MHC.OFFVIS ---
Intake Visit Reasons: bladder wall thickening Intake Note: New Patient presents for initial visit for bladder wall thickening and recurrent uti Urology Medications: none Blood Thinner: none Naturopath Required: No Accompanied by: Unknown Allergies No Known Allergies [No Known Allergies*] Allergy (Verified 03/24/24 16:34) Medication List - Last Reconciled 03/24/24 by MAYE Minor atenolol 25 mg PO DAILY 90 days cefuroxime axetil 500 mg PO BID cholecalciferol (vitamin D3) 50 mcg PO DAILY hospital bed As directed ibuprofen 600 mg PO DAILY PRN HPI Comments Details: Geraldine is a 53-year-old female patient of Dr. Pedersen who was accompanied by her ex- at today's office visit. She has a past medical history of MS, anxiety, and hypertension. She presents to the office today as a new patient for bladder wall thickening. In discussion with the patient today she reports having recently been admitted at [facility] in January and having been treated for urinary tract infection and believes she currently has another urinary tract infection. She was unable to void to obtain urinalysis however nursing into obtain urine via straight catheterization. UA notes positive leukocytes positive nitrates positive 3+ microscopic hematuria. We discussed at length potential causes of recurrent urinary tract infections as well as bladder wall thickening. PVR 0 mL. In review of patient's chart it appears CT 02/08 notes kidneys are normal in size, shape, and attenuation. No hydronephrosis, hydroureter, or calculi seen. No perinephric stranding. There is marked asymmetrical thickening of the bladder wall which measures 1.2 cm on the left. There is marked mucosal enhancement in this region. Urine culutre 02/08 noted Proteus mirabilis and E coli. In discussion with the patient today she reports having completed antibiotic therapy as prescribed. She reports progressive issues with her MS. She discusses her baseline toileting habits is incontinence given her decreased mobility. We discussed at length proper hygiene of the area. When asked she does report noting foul-smelling urine and bladder pressure. She otherwise denies hematuria, dysuria, flank pain, fever, and or chills. She otherwise offers no other issues or concerns at this time. [facility] Medical History Multiple sclerosis Bladder disorder Anxiety, generalized Hypertension, essential Surgical History History of tubal ligation Family History Father Diabetes mellitus Mother No problems noted. Brother Alcoholic Sister No problems noted. Social History Household Members: Family Housing: House Do you presently have visiting nurse or other home services: Yes Patient Tobacco Use Status: Never used Tobacco Tobacco use type: Cigarette Cigarette Packs Per Day: 0 Cigarettes Per Day: 5 e-Cigarette/Vaping Use: Never Used Substance Use Type: Marijuana Advance Directives Date on File: 07/02/22 service: No Current occupational status: disabled Cognitive needs: No Hearing needs: No Vision needs: Yes Review of Systems Const All systems reviewed & are unremarkable except as noted in HPI and below Physical Exam Const General: cooperative, comfortable, no acute distress, well developed, alert, awake and poor hygiene Nutritional Appearance: thin Orientation/consciousness: patient oriented x3 Limitations: wheelchair HEENT Head: Yes normal to inspection, Yes normocephalic and Yes atraumatic Ears: hearing grossly normal bilaterally Eyes General: appearance normal, both eyes and all related structures Neck Neck: Yes normal visual inspection and Yes trachea midline Chest Chest palpation & inspection: normal inspection of the chest Resp Effort & Inspection: normal respiratory effort and able to speak in complete sentences Cardio Rate: regular rate GI Inspection: Yes normal to inspection General: Yes no CVA tenderness Back/Spine/Pelvis Back: no CVA tenderness Skin General skin exam: no rashes or lesions noted Neuro General: patient oriented x3 Extrem Other: 1+ Bilateral lower leg edema Psych Appearance: grossly normal Mental Status: mental status grossly normal Speech and movement: Normal speech and movement present and Clear speech present Affect: normal affect Attitude: cooperative Thought process: Normal thought process present Thought content: Normal thought content present Insight: Fair insight present (Psych) Judgement: Fair judgement present (Psych) Office Procedures Bladder/Catheter Procedure Details: 14 straight cath instered to obtain urine sample, patient tolerated well sample obtained for culture [id number] Bladder Catheter Procedure code (CPT) selection complete Results AMB Urinalysis, Automated UA Leukoctes 500 Angy/uL Last Edit by Mj Garay on 03/24/24 16:41 UA Nitrite Last Edit by Mj Garay on 03/24/24 16:41 UA Urobilinogen 0.2 mg/dL Last Edit by Mj Garay on 03/24/24 16:41 UA Protein 30 mg/dL Last Edit by Mj Garay on 03/24/24 16:41 UA pH 6.0 Last Edit by Mj Garay on 03/24/24 16:41 UA Blood 200 Akli/uL Last Edit by Mj Garay on 03/24/24 16:41 UA Specific [place] 1.015 Last Edit by [employer] Garay on 03/24/24 16:41 UA Ketone Last Edit by [employer] Garay on 03/24/24 16:41 UA Bilirubin 0 mg/dL Last Edit by Mj Garay on 03/24/24 16:41 UA Glucose 0 mg/dL Last Edit by Mj Garay on 03/24/24 16:41 Results Reviewed Results Reviewed: Laboratory Last Values Urine pH (Auto) 6.0 03/24/24 16:40 Specific [place] (Auto) 1.015 03/24/24 16:40 Urine Protein (Auto) 30 mg/dL 03/24/24 16:40 Glucose (UA)(Auto) 0 mg/dL 03/24/24 16:40 Urine Blood (Auto) 200 Kali/uL 03/24/24 16:40 Urine Bilirubin (Auto) 0 mg/dL 03/24/24 16:40 Urine Urobilinogen (Auto) 0.2 mg/dL 03/24/24 16:40 Leukocyte Esterase (Auto) 500 Angy/uL 03/24/24 16:40 Date of Service: 01/17/24 EXAMINATION: CT ABDOMEN AND PELVIS WITH CONTRAST FINDINGS: LUNG BASES: There are tree-in-bud opacities are seen in the right middle lobe along with right middle lobe atelectasis medially LIVER, GALLBLADDER, AND BILIARY TREE: The liver is normal enlarged measuring almost 20 cm in greatest length with decreased attenuation consistent with hepatic steatosis. Small subcentimeter hypodensities are seen consistent with benign cysts which need no follow-up. No worrisome solid focal hepatic lesion or biliary ductal dilatation is present. The gallbladder is unremarkable with no evidence of radiopaque gallstones, gallbladder wall thickening, or obvious pericholecystic inflammatory changes. PANCREAS: Unremarkable. There are pancreatic lobulations but no mass seen. SPLEEN: Unremarkable. ADRENAL GLANDS: Unremarkable. KIDNEYS AND URETERS: The kidneys are normal in size, shape, and attenuation. No hydronephrosis, hydroureter, or calculi seen. No perinephric stranding. BLADDER: There is marked asymmetric thickening of the bladder wall which measures 1.2 cm on the left. There is marked mucosal enhancement in this region. GASTROINTESTINAL TRACT: The small and large bowel are unremarkable. The appendix is unremarkable. ABDOMINAL WALL: No significant hernia is appreciated. LYMPH NODES: Normal. VASCULAR: Calcific atherosclerotic changes are present in the aorta and iliofemoral vessels. There is no evidence of an abdominal aortic aneurysm. There is reflux in the left ovarian vein which is small and there are small to moderate number of left-sided pelvic varices. PELVIC VISCERA: Retroverted uterus is present. An abnormal adnexal mass is not seen. OSSEOUS STRUCTURES: Marked scoliosis convex to the left is seen with degenerative changes throughout the spine. No bony destructive lesions IMPRESSION: 1. A cause for the patient's right lower quadrant pain has not been found. The appendix is normal. 2. Incidental note made of an enlarged fatty liver, tree-in-bud opacities in the right middle lobe, marked asymmetric thickening of the bladder wall with mucosal enhancement, left ovarian vein reflux with pelvic varices and degenerative changes in the spine. Cystoscopy is recommended for further evaluation of the bladder. Assessment & Plan Assessment & Plan (1) UTI (urinary tract infection): Code(s): N39.0 - Urinary tract infection, site not specified Category: Medical (2) Incontinence: Code(s): R32 - Unspecified urinary incontinence Category: Medical (3) Bladder wall thickening: Code(s): N32.89 - Other specified disorders of bladder Category: Medical Plan In office urinalysis results reviewed with the patient today; as noted above; will send for urine culture as well as urine cytology. Discussed at length potential causes of bladder wall thickening as well as recurrent urinary tract infections. PVR 0 mL. Start Flomax as discussed and prescribed. Start Bactrim as discussed and prescribed. Discussed importance of timed/scheduled voiding given decreased mobility. Discussed possible near future in office cystoscopy for further assessment evaluation. Discussed at length importance of proper care of area. Recent CT results reviewed with the patient today; as noted above. Follow-up in 1 month with PVR; or sooner with any issues, concerns, and or questions. Orders: Orders Urine Cytology Today N39.0 - Urinary tract infection, site not specified AMB Bladder/Catheter Procedure Today N39.0 - Urinary tract infection, site not specified AMB Post Void Residual by ultrasound Today N39.0 - Urinary tract infection, site not specified Urine Culture Today N39.0 - Urinary tract infection, site not specified AMB Urinalysis Automated Today Z13.9 - Encounter for screening, unspecified Medications: New tamsulosin 0.4 mg PO BEDTIME 90 days 90 caps 1RF sulfamethoxazole-trimethoprim 800-160 mg (Bactrim DS) 1 tab PO BID 14 days 28 tabs 0RF N39.0 - Urinary tract infection, site not specified Discontinued cefuroxime axetil Discontinued Reason: Patient Completed Course 500 mg PO BID 10 tabs 0RF Patient Instructions: The patient had an opportunity to ask questions regarding the treatment plan. All questions were answered. Physical exam, labs, and imaging were discussed and reviewed in detail. As well as risks, benefits, and discussion of treatment choices. No major barriers to understanding were identified. The patient expressed understanding and agreement with the above treatment plan. The patient was made aware they should contact our office by phone for worsening of their current condition, the appearance of new symptoms, or with any questions or concerns. Compliance is encouraged with any medications and follow up testing that is ordered. It is a privilege to be allowed the opportunity to participate in? your urological care.? Again, if you have any questions or concerns If you have any questions or concerns please do not hesitate to contact me. The office is [phone]. This note is constructed using voice recognition software. While every effort has been made to ensure accuracy ring sorter errors may have been included. Yours sincerely, MAYE Mnior Coding Level of Care Code New Pt Level 4 (35750) Diagnoses UTI (urinary tract infection) N39.0 Incontinence R32 Bladder wall thickening N32.89 CPT Codes Bladder/Catheter Procedure - CPT: 01012-Eapylq Bladder Catheter ([id number])
== END 2024-03-24 16:36 | disposition home or self-care (01) ==
LOC: HO.HUSH 15:34
PROVIDERS: PCP Internal Medicine; Visit Provider Nurse Practitioner Family
DX: N39.0 Urinary tract infection, site not specified (principal); R32 Unspecified urinary incontinence; N32.89 Other specified disorders of bladder; Z13.9 Encounter for screening, unspecified
CPT/HCPCS: 51701; 99204

== ENCOUNTER 2024-05-24 22:15 | Emergency (ER) | payer OTHER, SELFPAY ==
[2024-05-24 22:23] VITALS: BP 110/76; PULSE 76; O2SAT 98
[2024-05-24 22:31] VITALS: BP 118/57; PULSE 76; RESP 18; TEMP 37.2; O2SAT 97; BMI 19.4
--- NOTE | 2024-05-24 22:36 | ECG_ITS ---
Test Reason : PALPITATIONS Blood Pressure : / mmHG Vent. Rate : 068 BPM Atrial Rate : 068 BPM P-R Int : 114 ms QRS Dur : 068 ms QT Int : 396 ms P-R-T Axes : - degrees QTc Int : 421 ms Normal sinus rhythm Nonspecific T wave abnormality Abnormal ECG When compared with ECG of 17-JAN-2024 18:30, Nonspecific T wave abnormality has replaced inverted T waves in Anterior leads Referred By: Generic ED Physician Electronically Signed By:YOJANA HO MD
[2024-05-25 02:36] VITALS: BP 144/90; PULSE 75; RESP 16; TEMP 36.7; O2SAT 100
[2024-05-25 04:33] VITALS: BP 129/80; PULSE 69; RESP 15; TEMP 36.9; O2SAT 96
--- NOTE | 2024-05-25 05:58 | ED_ITS ---
HPI - General Adult General Chief complaint: Dyspnea Stated complaint: coming from home with feeling of panic attacks Time Seen by Provider: 05/25/24 05:49 Source: patient and EMS Mode of arrival: EMS Limitations: no limitations History of Present Illness ED Provider: Dr. Dawna Mcgraw HPI narrative: Patient comes to the emergency room complaining of feeling weird. Patient states that she had palpitations, weird body sensation, bilateral pain, states that she does not know how to explain what happened to her. Patient states that she has history of panic attacks but then feel like she was anxious. Patient states that she has history of multiple sclerosis, patient can not walk and usually transfers herself from bed to wheelchair. Patient used to take infusions for MS, states that she stopped taking them because her copayments were too expensive and they were not helping her much. Related Data Home Medications ?Medication ?Instructions ?Recorded ?Confirmed ibuprofen 600 mg tablet 600 mg PO DAILY PRN Pain 02/02/24 03/24/24 Previous Rx's ?Medication ?Instructions ?Recorded hospital bed #1 ea 07/23/22 atenolol 25 mg tablet 25 mg PO DAILY 90 days #90 tabs 11/01/23 cholecalciferol (vitamin D3) 50 50 mcg PO DAILY #90 caps 11/01/23 mcg (2,000 unit) capsule sulfamethoxazole 800 1 tab PO BID 14 days #28 tabs 03/24/24 mg-trimethoprim 160 mg tablet (Bactrim DS) tamsulosin 0.4 mg capsule 0.4 mg PO BEDTIME 90 days #90 caps 03/24/24 Allergies Allergy/AdvReac Type Severity Reaction Status Date / Time No Known Allergies Allergy Verified 05/24/24 22:34 [No Known Allergies*] Review of Systems 2 Review of Systems: Constitutional : No Weight loss, No Fever, No Chills, No Night Sweats, No Fatigue, No Malaise, complaining of a weird sensation, states she can not really explain, ENT/Mouth : No Hearing loss, No Ear Pain, No Nasal Congestion, No Sinus Pain, No Hoarseness, No sore throat, No Rhinorrhea, No Swallowing Difficulty Eyes: No Eye Pain, No Swelling, No Redness, No Foreign Body, No Discharge, No Vision Changes Cardiovascular : No Chest Pain, No SOB, No Dyspnea on Exertion, No Orthopnea, No Edema, complaining of palpitations that is all resolved Respiratory : No Cough, No Sputum, No Wheezing, No Smoke Exposure, No Dyspnea Gastrointestinal : No Nausea, No Vomiting, No Diarrhea, No Constipation, No abdominal Pain, No Hematochezia, No Melena Genitourinary : no irregular bleeding, No Dysuria, No Urinary Frequency, No Hematuria, No Urinary Incontinence, No Urgency, No Flank Pain, No Urinary Flow Changes, No Hesitancy Musculoskeletal : No joint pain, No Myalgias, No Joint Swelling Skin : No Skin Lesions, No rash Neuro : No Weakness, No Numbness, No Paresthesias, No Loss of Consciousness, No Dizziness, No Headache Psych complaining of possible anxiety, No Depression, No SI/HI/AH/VH, No Social Issues, Heme/Lymph: No Bruising, No Bleeding,No Lymphadenopathy Endocrine : No Polyuria, No Polydipsia, No Temperature Intolerance PMFSH Past Medical History Medical History Multiple sclerosis Bladder disorder Anxiety, generalized Hypertension, essential Surgical History History of tubal ligation Family History Family History Father Diabetes mellitus Mother No problems noted. Brother Alcoholic Sister No problems noted. Social History Social History Household Members: Family Housing: House Do you presently have visiting nurse or other home services: Yes Patient Tobacco Use Status: Never used Tobacco Tobacco use type: Cigarette Cigarette Packs Per Day: 0 Cigarettes Per Day: 5 e-Cigarette/Vaping Use: Never Used Substance Use Type: Marijuana Advance Directives: Yes Advance Directives on File: Yes Advance Directives Date on File: 07/02/22 service: No Current occupational status: disabled Cognitive needs: No Hearing needs: No Vision needs: Yes Physical Exam ED Vital Signs: Vital Signs - 24 hr 05/24/24 22:31 05/25/24 02:36 05/25/24 04:33 Temperature 98.9 F 98.0 F 98.4 F Pulse Rate 76 75 69 Respiratory Rate 18 16 15 Blood Pressure 118/57 L 144/90 H 129/80 Pulse Oximetry 97 100 96 Oxygen Delivery Method Room Air Room Air Room Air 05/25/24 06:10 Temperature 98 F Pulse Rate 63 Respiratory Rate 15 Blood Pressure 135/82 Pulse Oximetry 98 Oxygen Delivery Method Room Air BMI result Body Mass Index 19.4 Const Other: Appearance: Alert. Oriented X3. No acute distress. Eyes: Pupils equal, round and reactive to light. ENT: Pharynx normal. Neck: Normal inspection. Neck supple. No lymph nodes noted. No crepitus CVS: Normal heart rate and rhythm. Pulses normal. Normal S1 and S2 Respiratory: No respiratory distress. Breath sounds normal. No Wheezing. No rales Abdomen: Soft and nontender. No rigidity. No distention. Skin: Skin warm and dry. Normal skin color. Normal skin turgor. Extremities: No lower extremity edema. No Lacerations. No Rash Neuro: Oriented X 3. No motor deficit. No sensory deficit. Moving all extremities. No slurred speech. CN 2 through 12 grossly intact Psych: calm, cooperative, normal affect Course Course Course Narrative: It is possible that patient may have had a panic attack At this time, patient is calm, in bed, no complaints. Patient states that earlier today she had a weird sensation throughout the body that she can not really explain. Patient requesting a urinalysis to rule out UTI, denies hematuria or dysuria. Patient states that at baseline she is incontinent of urine Medical Decision Making Medical Decision Making MDM Narrative: My interpretation of labs, normal hematology, chemistry normal, troponin negative, alcohol level negative, serology test negative -at this time, patient does not have any symptoms. -patient states that she lives at home, has daily care and her son also is helpful. -urinalysis pending -sign-out given to my colleague DULCE Davis Lab Data 05/25/24 06:05 05/25/24 06:05 Labs: Lab Results 05/25/24 Range/Units 06:05 WBC 6.9 (4.8-10.8) X10*3/uL RBC 5.43 (4.20-5.50) X10*6/uL Hgb 15.7 (12.0-16.0) g/dl Hct 47.4 H (37.0-47.0) % MCV 87.3 (80.0-98.0) fL MCH 28.9 (27.0-33.0) pg MCHC 33.1 (31.0-35.0) g/dl RDW 13.6 (11.0-16.0) % Plt Count 336 (160-400) X10*3/uL MPV 10.7 (9.4-12.3) fL Immature Gran % (Auto) 0.1 (0.0-0.4) % Neut % (Auto) 64.4 (45-73) % Lymph % (Auto) 23.8 (20-40) % [place] % (Auto) 9.6 (2-11) % Eos % (Auto) 1.2 (0-4) % Baso % (Auto) 0.9 (0-2) % Lymph # (Auto) 1.6 (1.2-4.9) X10*3/uL [place] # (Auto) 0.7 (0.1-1.2) X10*3/uL Eos # (Auto) 0.1 (0.0-0.4) X10*3/uL Baso # (Auto) 0.1 (0.0-0.2) X10*3/uL Abs Immat Gran (auto) 0.01 (0.00-0.03) X10*3/uL Absolute Neuts (auto) 4.4 (2.0-8.3) x10*3/uL Absolute Nucleated RBC 0.000 (0.0-0.012) X10*3/uL Nucleated RBC % (auto) 0.0 (0.0-0.2) /100WBC PT 10.8 L (10.9-12.4) SEC INR 0.9 (0.9-1.1) Sodium 145 (135-145) mmol/L Potassium 4.0 (3.3-5.1) mmol/L Chloride 106 (96-108) mmol/L Carbon Dioxide 28 (22-29) mmol/L Anion Gap 15 (12-20) BUN 15 (9-16) mg/dL Creatinine 0.60 (0.5-1.4) mg/dL Estim Creat Clear Calc 92.1 Estimated GFR > 60 Random Glucose 97 (60-115) mg/dL Calcium 10.0 (8.4-10.2) mg/dL Magnesium 2.3 (1.6-2.6) mg/dL Total Bilirubin 0.5 (0.0-1.0) mg/dL Direct Bilirubin 0.2 (0.0-0.5) mg/dL AST 18 (5-31) U/L ALT 14 (0-31) U/L Alkaline Phosphatase 74 (39-117) U/L Troponin I High Sens < 2.7 (<3.5-17.0) ng/L Total Protein 6.8 (6.5-8.0) g/dL Albumin 4.4 (3.5-5.0) g/dL Ethyl Alcohol < 10 mg/dL COVID-19 (JA) Negative (Negative) COVID-19 Clin Com See Note Influenza Type A (LACEY) Negative (Negative) Influenza Type B (LACEY) Negative (Negative) Influenza A & B Note See Note Discharge Plan Discharge Clinical Impression: Anxiety Patient Disposition: Still a Patient Prescriptions: No Action (DME) hospital bed Kit See Rx Instructions .Route Qty: 1 0RF Rx Instructions: As directed atenolol 25 mg tablet 25 mg PO DAILY 90 Days Qty: 90 1RF cholecalciferol (vitamin D3) 50 mcg (2,000 unit) capsule 50 mcg PO DAILY Qty: 90 1RF ibuprofen 600 mg Tablet 600 mg PO DAILY PRN (Reason: Pain) sulfamethoxazole-trimethoprim [Bactrim DS] 800-160 mg tablet 1 tab PO BID 14 Days Qty: 28 0RF tamsulosin 0.4 mg capsule 0.4 mg PO BEDTIME 90 Days Qty: 90 1RF Print Language: Portuguese
[2024-05-25 06:10] VITALS: BP 135/82; PULSE 63; RESP 15; TEMP 36.6; O2SAT 98
[2024-05-25 06:17] LABS: Basophils Absolute Auto 0.1 X10*3/uL (0.0-0.2); Basophils Percent Auto 0.9 % (0-2); Eosinophils Absolute Auto 0.1 X10*3/uL (0.0-0.4); Eosinophils Percent Auto 1.2 % (0-4); Hematocrit 47.4 % (37.0-47.0); Hemoglobin 15.7 g/dl (12.0-16.0); Imm Gran Abs Auto 0.01 X10*3/uL (0.00-0.03); Imm Gran Pct Auto 0.1 % (0.0-0.4); Lymphocytes Absolute Auto 1.6 X10*3/uL (1.2-4.9); Lymphocytes Percent Auto 23.8 % (20-40); MANUAL DIFF FLAG NO; Mean Corpuscular HGB Conc 33.1 g/dl (31.0-35.0); Mean Corpuscular Hemoglobin 28.9 pg (27.0-33.0); Mean Corpuscular Volume 87.3 fL (80.0-98.0); Mean Platelet Volume 10.7 fL (9.4-12.3); Monocytes Absolute Auto 0.7 X10*3/uL (0.1-1.2); Monocytes Percent Auto 9.6 % (2-11); Neutrophils Absolute Auto 4.4 x10*3/uL (2.0-8.3); Neutrophils Percent Auto 64.4 % (45-73); Platelet Count 336 X10*3/uL (160-400); Red Blood Count 5.43 X10*6/uL (4.20-5.50); Red Cell Distribution Width 13.6 % (11.0-16.0); White Blood Count 6.9 X10*3/uL (4.8-10.8)
[2024-05-25 06:29] LABS: INTERNATIONAL NORM RATIO 0.9 (0.9-1.1); Prothrombin Time 10.8 SEC (10.9-12.4)
[2024-05-25 06:30] LABS: COVID-19 Test Negative (Negative); Ethanol < 10 mg/dL; IDNOW Serial# 08D9AD1C; IDNOW Serial# 152EDE1D; Influenza A Negative (Negative); Influenza B2 Negative (Negative)
[2024-05-25 06:32] LABS: Alanine Aminotransferase 14 U/L (0-31); Albumin Level 4.4 g/dL (3.5-5.0); Alkaline Phosphatase 74 U/L (39-117); Anion Gap 15 (12-20); Aspartate Amino Transferase 18 U/L (5-31); Bilirubin Direct 0.2 mg/dL (0.0-0.5); Bilirubin Total 0.5 mg/dL (0.0-1.0); Blood Urea Nitrogen 15 mg/dL (9-16); Carbon Dioxide 28 mmol/L (22-29); Chloride 106 mmol/L (96-108); Creatinine Clr Calc Pharmacy 92.1; Estimated Glomerular Filt Rate > 60; Glucose Random 97 mg/dL (60-115); Magnesium 2.3 mg/dL (1.6-2.6); Sodium 145 mmol/L (135-145); Total Protein 6.8 g/dL (6.5-8.0)
[2024-05-25 06:37] LABS: Troponin-I High Sensitivity < 2.7 ng/L (<3.5-17.0)
[2024-05-25 06:58] VITALS: BP 133/85; PULSE 74; RESP 15; TEMP 36.6; O2SAT 100
[2024-05-25 07:00] LABS: Amphetamine Screen Urine Not Detected (Not Detect); Appearance Urine Clear; Barbiturates, Urine Not Detected (Not Detect); Benzodiazepines Screen Urine Not Detected (Not Detect); Buprenorphine Scr Not Detected (Not Detect); Cannabinoid Screen Urine POSITIVE (Not Detect); Cocaine Screen Urine Not Detected (Not Detect); Color Urine Yellow; Fentanyl, urine Not Detected (Not Detect); Glucose Urine UA Negative (Negative); Leukocyte Esterase Urine Negative (Negative); Methadone Screen, Urine Not Detected (Not Detect); Nitrite Urine Negative (Negative); Opiate Screen Urine Not Detected (Not Detect); Oxycodone Screen Urine Not Detected (Not Detect); PH 6.5 (5.0-9.0); Phencyclidine Screen Urine Not Detected (Not Detect); Specific Gravity - Urine 1.015 (1.005-1.025); Urine Blood Negative (Negative); Urine Ketones Negative (Negative); Urine Protein Negative (Neg-Trace)
[2024-05-25 11:47] VITALS: BP 138/89; PULSE 75; RESP 18; TEMP 36.6; O2SAT 99
[2024-05-25 11:54] VITALS: BP 138/89; PULSE 75; RESP 18; TEMP 36.6; O2SAT 99
== END 2024-05-25 11:54 | disposition home or self-care (01) ==
PROVIDERS: Emergency Provider Emergency Medicine
DX: F41.9 Anxiety disorder, unspecified (principal); R06.00 Dyspnea, unspecified; F43.0 Acute stress reaction; M79.10 Myalgia, unspecified site; Z11.52 Encounter for screening for COVID-19; Z51.81 Encounter for therapeutic drug level monitoring; Z79.899 Other long term (current) drug therapy
CPT/HCPCS: 80048; 80076; 80307; 81003; 83735; 84484; 85025; 85610; 87502; 87635; 93005; 99283; 99284

== ENCOUNTER → 2024-05-24 22:36 | Outpatient (BNV) | payer OTHER, SELFPAY | PROVIDERS: Emergency Provider Emergency Medicine; Visit Provider Internal Medicine Cardiovascular Disease | DX: R94.31 Abnormal electrocardiogram [ECG] [EKG] (principal) | CPT/HCPCS: 93010 ==

== ENCOUNTER 2025-03-02 14:45 | Outpatient (REF) | payer OTHER, SELFPAY ==
--- NOTE | ~2025-03-02 | XR_ITS ---
EXAMINATION: XR SHOULDER, RIGHT CLINICAL INFORMATION: M25.511 - Pain in right shoulder COMPARISON: January 17, 2024 TECHNIQUE: AP and Y-view projection is of the right shoulder. FINDINGS: No acute cortical disruption or malalignment. No lytic or blastic lesions. No calcifications in the soft tissues. XR/XR shoulder RT min 2V IMPRESSION: No acute fracture or dislocation. Negative exam. Electronically signed by: John Gr MD 03/02/2025 04:11 PM EDT
[2025-03-02 16:22] LABS: MANUAL DIFF FLAG NO
[2025-03-02 16:37] LABS: Hematocrit 44.0 % (37.0-47.0); Hemoglobin 14.4 g/dl (12.0-16.0); Imm Gran Abs Auto 0.01 X10*3/uL (0.00-0.03); Imm Gran Pct Auto 0.1 % (0.0-0.4); Lymphocytes Absolute Auto 1.8 X10*3/uL (1.2-4.9); Mean Corpuscular HGB Conc 32.7 g/dl (31.0-35.0); Mean Corpuscular Hemoglobin 28.8 pg (27.0-33.0); Mean Corpuscular Volume 88.0 fL (80.0-98.0); NRBC Abs Auto 0.000 X10*3/uL (0.0-0.012); NRBC Pct Auto 0.0 /100WBC (0.0-0.2); Platelet Count 327 X10*3/uL (160-400); Red Blood Count 5.00 X10*6/uL (4.20-5.50); White Blood Count 7.5 X10*3/uL (4.8-10.8)
[2025-03-02 16:56] LABS: Alanine Aminotransferase 10 U/L (0-31); Albumin Level 4.6 g/dL (3.5-5.0); Alkaline Phosphatase 63 U/L (39-117); Anion Gap 16 (12-20); Aspartate Amino Transferase 20 U/L (5-31); Blood Urea Nitrogen 9 mg/dL (9-16); Calcium 9.6 mg/dL (8.4-10.2); Carbon Dioxide 28 mmol/L (22-29); Chloride 102 mmol/L (96-108); Estimated Glomerular Filt Rate > 60; Potassium 3.7 mmol/L (3.3-5.1); Sodium 142 mmol/L (135-145); Total Protein 6.7 g/dL (6.5-8.0)
[2025-03-02 17:20] LABS: Vitamin B12 267 pg/mL (200-900)
[2025-03-02 18:41] LABS: Free T4 (Free Thyroxine) 1.09 ng/dL (0.71-1.85)
[2025-03-06 16:08] LABS: Vitamin D 25-OH, D2 <4 ng/mL; Vitamin D 25-OH, D3 34 ng/mL; Vitamin D 25-OH, Total 34 ng/mL (30-100)
== END 2025-03-02 14:46 | disposition home or self-care (01) ==
LOC: HO.HMGCX 14:45
PROVIDERS: PCP Internal Medicine; Visit Provider Internal Medicine
DX: Z00.01 Encounter for general adult medical examination with abnormal findings (principal); M25.511 Pain in right shoulder; G35 Multiple sclerosis; I10 Essential (primary) hypertension; M62.59 Muscle wasting and atrophy, not elsewhere classified, multiple sites; R39.81 Functional urinary incontinence; F33.41 Major depressive disorder, recurrent, in partial remission; F41.1 Generalized anxiety disorder; Z91.81 History of falling; M79.89 Other specified soft tissue disorders; R29.898 Other symptoms and signs involving the musculoskeletal system
CPT/HCPCS: 36415; 73030; 80053; 82306; 82607; 83721; 84439; 84443; 85025; 99212; 99396

== ENCOUNTER 2025-03-02 14:45 | Outpatient (AMB) | payer OTHER, SELFPAY ==
[2025-03-02 14:50] VITALS: BP 138/78; PULSE 86; O2SAT 97
--- NOTE | 2025-03-02 14:50 | MHC.PC.OV ---
Vital Signs 03/02/25 14:50 Height 5 ft 6 in BMI Reason not done Patient refused/unable BP 138/78 Blood Pressure Location Lt brachial Position Sitting Pulse 86 Pulse Source Pulse Oximeter Pulse Oximetry (%) 97 Oxygen Delivery Method Room Air Intake Visit Reasons: OVERDUE ANNUAL PE Felt Pad Cutter Required: No Allergies No Known Allergies (No Known Allergies*) Allergy (Verified 03/02/25 14:50) Medication List - Last Reconciled 03/02/25 by Armen Pedersen MD atenolol 25 mg PO DAILY 90 days hospital bed As directed Tobacco use date assessed: 03/02/25 Dental Screening Dental Screen Date: 03/02/25 Did you have a dental visit in the last 12 months?: No Did you have a dental problem in the last 6 months where you did not have access to dental care?: No Was dental information given to patient?: Patient declined HPI OVERDUE ANNUAL PE HPI Details History of Present Illness The patient is a 54 year old female presenting with pain and weakness predominantly affecting the entire body but specifically impacting the right shoulder and both upper limbs and both legs Multiple Sclerosis: - The patient has not received neurology follow-up due to neurologist turnover at previous care facilities. - Symptoms include generalized pain, functional loss, and muscle spasms. - Bedbound status has developed, with significant mobility limitations. - Neurological evaluations have been challenging to schedule. Right Shoulder Dysfunction: - The patient received a shoulder injection in the past, possibly related to current dysfunction. - Pain is exacerbated with movement. - She has previously experienced hospitalizations, potentially linked to worsening of symptoms. - Describes significant loss of function with severe pain upon movement. Bilateral Upper Limb Weakness: - Severe weakness, particularly in the right upper limb, causes an inability to lift or perform regular tasks. - The patient previously had a stronger right side, which has now deteriorated. - Both arms exhibit compromised strength, affecting everyday activities. Peripheral Edema: - Reports significant swelling in the lower extremities, notably the feet. - Believes lack of movement contributes to swelling, linked to muscle inactivity. Hypertension: - Managed with Atenolol, reflecting controlled blood pressure but remains under ongoing assessment. Medical History: - Multiple Sclerosis - Hypertension - History of past shoulder injection Social History: - The patient resides with her son, who works during the day. - Receives support from visiting nurses for basic needs. Twice a day - Manages grocery needs via online shopping with delivery. - Limited mobility due to current condition is impacting daily functionality. Health Maintenance - Declined mammogram, colon screening, and Pap smear during this visit. [place] [facility] Care Referred to neurology for management of multiple sclerosis symptoms. Medications - Atenolol 25 mg for hypertension - Multivitamin for general health Diagnostic results - Labs: Ordered but results pending. - Tests and Diagnostics: X-ray of shoulder ordered. Patient Instructions - Follow up with the neurology department for a specialist consultation. - Get blood work completed as ordered. - Proceed with shoulder X-ray. - Physical therapy will be scheduled to assist with improving mobility and managing symptoms. - Continue taking current medications as prescribed. Review of Systems - General: No fever no chills - Neurological: No headaches - Ear nose throat: No sore throat no hearing difficulty no ear pain - Cardiovascular: No syncope, no chest pain, no palpitations - Gastrointestinal: No nausea vomiting or diarrhea - Skin: No new complaints Physical Exam General: Cooperative, sitting in wheelchair, no acute distress Orientation: Patient oriented x3 Limitations: Wheelchair-bound Head: Normal to inspection Ears: Within normal limit visually Nose: Normal external nose present Face and sinus: Normal facial exam Eyes: Appearance normal, extraocular movement intact pupils reactive Neck: Normal visual inspection and supple Respiratory: Normal respiratory effort and able to speak in complete sentences. Clear to auscultation, no stridor Cardiovascular: S1 and S2 RRR GI: Normal to inspection. Soft to palpation and nontender Skin: Turgor normal, no acute findings Neuro: Patient oriented x3, no strength in legs unable to move, hand tobacco conditioner 4 x 5 bilateral unable to lift arms above head Extremities: Swelling noted in feet, 1+ pitting on ankles, tender over rotator cuff right side [facility] Medical History Multiple sclerosis Bladder disorder Anxiety, generalized Hypertension, essential Surgical History History of tubal ligation Family History Father Diabetes mellitus Mother No problems noted. Brother Alcoholic Sister No problems noted. Social History Household Members: Family Housing: House Do you presently have visiting nurse or other home services: Yes Patient Tobacco Use Status: Never used Tobacco Tobacco use type: Cigarette Cigarette Packs Per Day: 0 Cigarettes Per Day: 5 e-Cigarette/Vaping Use: Never Used Substance Use Type: Marijuana Advance Directives Date on File: 07/02/22 service: No Current occupational status: disabled Cognitive needs: No Hearing needs: No Vision needs: Yes Questionnaire PHQ-9 Over the last 2 weeks, how often have you been bothered by any of the following problems? 62120 - PHQ-9 Billing: Patient declined-do not bill Source: Developed by Drs. Mychal Israel, Latanya Mayberry, Jose Rothman and colleagues, with an educational ani from [employer]. Thrive Questionnaire Date Thrive assessed: 03/02/25 I am a: Patient What is your living situation today?: I choose not to answer this question Within the past 12 months, did the food you bought not last and you didn't have the money to get more?: I choose not to answer this question Within the past 12 months, did you worry whether your food would run out before you got money to buy more?: I choose not to answer this question Do you have trouble paying for medicines?: I choose not to answer this question Do you have trouble getting transportation to medical appointments?: I choose not to answer this question Do you have trouble paying your heating and electricity bill?: I choose not to answer this question Do you have trouble taking care of your child, family member or friend?: I choose not to answer this question Do you have trouble with day-to-day activities such as bathing, preparing meals, shopping, managing finances, etc.?: I choose not to answer this question Are you currently unemployed and looking for a job?: I choose not to answer this question Are you interested in more education?: I choose not to answer this question Please select the resources that you would like help with: None Currently or been in a relationship where the following occur: I choose not to answer THRIVE Score: 0 AUDIT C Alcohol Use Questionnaire (AUDIT-C) 1. How often do you have a drink containing alcohol?: Never 3. How often do you have six or more drinks on one occasion?: Never Total Score: 0 Score Reviewed/Action Taken: Yes JESUS-7 AMB Questionnaire JESUS-7 Date JESUS - 7 assessed: 03/02/25 (patient declined) Source: Developed by Drs. Mychal Israel, Latanya Mayberry, Jose Rothman and colleagues, with an educational ani from [employer]. Physical exam (Primary Care) Vital Signs: Last Vital Signs Pulse 86 03/02/25 14:50 BP 138/78 03/02/25 14:50 Pulse Ox 97 03/02/25 14:50 Oxygen Delivery Method Room Air 03/02/25 14:50 Tobacco/Smoking Status: Tobacco use Status Tobacco use date assessed 03/02/25 03/02/25 14:52 Patient Tobacco Use Status Never used Tobacco 03/02/25 14:50 Tobacco use type Cigarette 03/02/25 14:50 e-Cigarette/Vaping Use Never Used 03/02/25 14:50 Thrive Assessment: Date of Thrive Assessment Date Thrive assessed 03/02/25 03/02/25 14:52 Currently or been in a relationship where the following occur: I choose not to answer Coding Level of Care Code Est Pt Level 4 (46241) Est Pt Prev Care 40-64y(08500) Diagnoses Encounter for general adult medical examination with abnormal findings Z00.01 Acute pain of right shoulder M25.511 Chronicity: acute Multiple sclerosis G35 Hypertension, essential I10 Atrophy of muscle of multiple sites M62.59 Muscle atrophy area: multiple sites Functional urinary incontinence R39.81 Urinary Incontinence type: functional incontinence Recurrent major depressive disorder, in partial remission F33.41 Active/Remission status: in partial remission Risk for falls Z91.81 Anxiety, generalized F41.1 Weakness of both lower extremities R29.898 Swelling of both lower extremities M79.89 Assessment & Plan Assessment & Plan (1) Encounter for general adult medical examination with abnormal findings: Code(s): Z00.01 - Encounter for general adult medical examination with abnormal findings Category: Medical (2) Shoulder pain, right: Code(s): M25.511 - Pain in right shoulder Category: Medical Qualifiers: Chronicity: acute Qualified Code(s): M25.511 - Pain in right shoulder (3) Multiple sclerosis: Code(s): G35 - Multiple sclerosis Category: Medical (4) Hypertension, essential: Code(s): I10 - Essential (primary) hypertension Category: Medical (5) Muscle wasting: Code(s): M62.50 - Muscle wasting and atrophy, not elsewhere classified, unspecified site Category: Medical Qualifiers: Muscle atrophy area: multiple sites Qualified Code(s): M62.59 - Muscle wasting and atrophy, not elsewhere classified, multiple sites (6) Urine incontinence: Code(s): R32 - Unspecified urinary incontinence Category: Medical Qualifiers: Urinary Incontinence type: functional incontinence Qualified Code(s): R39.81 - Functional urinary incontinence (7) Major depression, recurrent: Code(s): F33.9 - Major depressive disorder, recurrent, unspecified Category: Medical Qualifiers: Active/Remission status: in partial remission Qualified Code(s): F33.41 - Major depressive disorder, recurrent, in partial remission (8) Risk for falls: Code(s): Z91.81 - History of falling Category: Medical (9) Anxiety, generalized: Code(s): F41.1 - Generalized anxiety disorder Category: Medical (10) Weakness of both lower extremities: Code(s): R29.898 - Other symptoms and signs involving the musculoskeletal system Category: Medical (11) Swelling of both lower extremities: Code(s): M79.89 - Other specified soft tissue disorders Category: Medical Plan Physical exam appointment patient is here with her ex- The patient is a 54 year old female presenting with pain and weakness predominantly affecting the entire body but specifically impacting the right shoulder and both upper limbs and both legs Multiple Sclerosis: - The patient has not received neurology follow-up due to neurologist turnover at previous care facilities. - Symptoms include generalized pain, functional loss, and muscle spasms. - Bedbound status has developed, with significant mobility limitations. - Neurological evaluations have been challenging to schedule. Right Shoulder Dysfunction: - The patient received a shoulder injection in the past, possibly related to current dysfunction. - Pain is exacerbated with movement. - She has previously experienced hospitalizations, potentially linked to worsening of symptoms. - Describes significant loss of function with severe pain upon movement. Bilateral Upper Limb Weakness: - Severe weakness, particularly in the right upper limb, causes an inability to lift or perform regular tasks. - The patient previously had a stronger right side, which has now deteriorated. - Both arms exhibit compromised strength, affecting everyday activities. Peripheral Edema: - Reports significant swelling in the lower extremities, notably the feet. - Believes lack of movement contributes to swelling, linked to muscle inactivity. Hypertension: - Managed with Atenolol, reflecting controlled blood pressure but remains under ongoing assessment. Medical History: - Multiple Sclerosis - Hypertension - History of past shoulder injection Social History: - The patient resides with her son, who works during the day. - Receives support from visiting nurses for basic needs. Twice a day - Manages grocery needs via online shopping with delivery. - Limited mobility due to current condition is impacting daily functionality. Health Maintenance - Declined mammogram, colon screening, and Pap smear during this visit. [place] [facility] Care Referred to neurology for management of multiple sclerosis symptoms. Medications - Atenolol 25 mg for hypertension - Multivitamin for general health Diagnostic results - Labs: Ordered but results pending. - Tests and Diagnostics: X-ray of shoulder ordered. Patient Instructions - Follow up with the neurology department for a specialist consultation. - Get blood work completed as ordered. - Proceed with shoulder X-ray. - Physical therapy will be scheduled to assist with improving mobility and managing symptoms. - Continue taking current medications as prescribed. Orders: Orders Complete Blood Count Auto Diff Today F33.41 - Major depressive disorder, recurrent, in partial remission, F41.1 - Generalized anxiety disorder, G35 - Multiple sclerosis, I10 - Essential (primary) hypertension, M62.59 - Muscle wasting and atrophy, not elsewhere classified, multiple sites, R39.81 - Functional urinary incontinence, Z00.01 - Encounter for general adult medical examination with abnormal findings, Z91.81 - History of falling TSH reflex Free T4 Today F33.41 - Major depressive disorder, recurrent, in partial remission, F41.1 - Generalized anxiety disorder, G35 - Multiple sclerosis, I10 - Essential (primary) hypertension, M62.59 - Muscle wasting and atrophy, not elsewhere classified, multiple sites, R39.81 - Functional urinary incontinence, Z00.01 - Encounter for general adult medical examination with abnormal findings, Z91.81 - History of falling Vitamin D 25-OH (D2 and D3) Today F33.41 - Major depressive disorder, recurrent, in partial remission, F41.1 - Generalized anxiety disorder, G35 - Multiple sclerosis, I10 - Essential (primary) hypertension, M62.59 - Muscle wasting and atrophy, not elsewhere classified, multiple sites, R39.81 - Functional urinary incontinence, Z00.01 - Encounter for general adult medical examination with abnormal findings, Z91.81 - History of falling XR shoulder RT min 2V Today M25.511 - Pain in right shoulder Comprehensive Met. Panel Today F33.41 - Major depressive disorder, recurrent, in partial remission, F41.1 - Generalized anxiety disorder, G35 - Multiple sclerosis, I10 - Essential (primary) hypertension, M62.59 - Muscle wasting and atrophy, not elsewhere classified, multiple sites, R39.81 - Functional urinary incontinence, Z00.01 - Encounter for general adult medical examination with abnormal findings, Z91.81 - History of falling LDL Cholesterol Direct Today F33.41 - Major depressive disorder, recurrent, in partial remission, F41.1 - Generalized anxiety disorder, G35 - Multiple sclerosis, I10 - Essential (primary) hypertension, M62.59 - Muscle wasting and atrophy, not elsewhere classified, multiple sites, R39.81 - Functional urinary incontinence, Z00.01 - Encounter for general adult medical examination with abnormal findings, Z91.81 - History of falling Vitamin B12 Today F33.41 - Major depressive disorder, recurrent, in partial remission, F41.1 - Generalized anxiety disorder, G35 - Multiple sclerosis, I10 - Essential (primary) hypertension, M62.59 - Muscle wasting and atrophy, not elsewhere classified, multiple sites, R39.81 - Functional urinary incontinence, Z00.01 - Encounter for general adult medical examination with abnormal findings, Z91.81 - History of falling Referrals Neurology Referral G35 - Multiple sclerosis, M62.59 - Muscle wasting and atrophy, not elsewhere classified, multiple sites [facility] Referral M79.89 - Other specified soft tissue disorders, R29.898 - Other symptoms and signs involving the musculoskeletal system Medications: Refilled atenolol 25 mg PO DAILY 90 tabs 0RF 90 days I10 - Essential (primary) hypertension
== END 2025-03-02 16:00 | disposition home or self-care (01) ==
LOC: HO.HMCC 14:46
PROVIDERS: Visit Provider Internal Medicine
DX: Z00.01 Encounter for general adult medical examination with abnormal findings (principal); G35 Multiple sclerosis; M62.59 Muscle wasting and atrophy, not elsewhere classified, multiple sites; R39.81 Functional urinary incontinence; M25.511 Pain in right shoulder; I10 Essential (primary) hypertension; F33.41 Major depressive disorder, recurrent, in partial remission; Z91.81 History of falling; F41.1 Generalized anxiety disorder; R29.898 Other symptoms and signs involving the musculoskeletal system; M79.89 Other specified soft tissue disorders

== ENCOUNTER → 2025-03-02 15:19 | Outpatient (BNV) | payer OTHER, SELFPAY | PROVIDERS: PCP Internal Medicine; Visit Provider Radiology Diagnostic Radiology | DX: M25.511 Pain in right shoulder (principal) | CPT/HCPCS: 73030 ==